=== PATIENT | male | born 1960 | race Caucasian/White ===

== ENCOUNTER 2020-03-01 20:22 | Emergency (ER) | payer OTHER ==
--- OUTSIDE RECORDS SUMMARY | 2020-03-01 20:25 | XMS REPORT | Clinical Summary ---
:1960 Author Organization [facility] Address [address] [place] [address] Care Team Providers Name Role Phone Sahil Ruiz MD Primary Care Provider Allergies No Known Allergies Medications Medication Sig Dispensed Refills Start Date End Date Status ferrous sulfate 325 (65 Take 1 tablet by 3 6 Active FE) MG tablet mouth 2 (two) times a day. hydroCHLOROthiazide daily. 2 09/05/2016 Active (HYDRODIURIL) 25 MG tablet losartan (COZAAR) 50 MG 50 mg daily. 2 09/05/2016 Active tablet pramipexole (MIRAPEX) TAKE 1 TABLET BY 2 08/31/2016 Active 0.5 MG tablet MOUTH AT 5 PM AND 1 AT 8 PM cholecalciferol, vitamin TAKE 1 CAPSULE(S) 1 017 Active D3, 50,000 unit capsule EVERY WEEK BY ORAL ROUTE DIRECTED FOR 30 DAYS. TRESIBA FLEXTOUCH U-200 INJECT 28 UNITS 3 02/03/2017 Active 200 unit/mL (3 mL) EVERY DAY, insulin pen TITRATE UP TO 50 UNITS PER DAY VICTOZA 2-MAXINE 0.6 mg/0.1 INJECT 1.2 MG 0 02/03/2017 Active mL (18 mg/3 mL) pen EVERY DAY BY injector SUBCUTANEOUS ROUTE DIRECTED FOR 30 DAYS. magnesium oxide (MAG-OX) Take 1 tablet by 3 02/23/20 17 Active 400 mg tablet mouth once daily. metFORMIN XR TAKE 2 TABLET(S) 2 01/31/2017 Active (GLUCOPHAGE-XR) 500 mg TWICE A DAY BY 24 hr tablet ORAL ROUTE DIRECTED FOR 30 DAYS. rosuvastatin (CRESTOR) 5 TAKE 1 TABLET(S) 2 12/08/19 17 Active MG tablet EVERY DAY BY ORAL ROUTE AT BEDTIME FOR 90 DAYS. multivit-min/folic/vit Take by mouth. 0 Active K/lycop (MEN'S MULTIVITAMIN ORAL) Active Problems Problem Noted Date Gastroparesis 06/14/2018 Gastroesophageal reflux disease with esophagitis 06/14 Status post laparoscopic fundoplication 06/14/2018 History of repair of hiatal hernia 06/14/2018 Obstructive sleep apnea 06/14/2018 Benign essential hypertension 06/14/2018 Family History Medical History Relation Name Comments Emphysema Father Breast cancer Mother Colon cancer Neg Hx Colon polyps Neg Hx Relation Name Status Comments Father Maternal Grandfather Maternal Grandmother Mother Alive Paternal Grandfather Paternal Grandmother Social History Tobacco Use Types Packs/Day Years Used Date Never Smoker Smokeless Tobacco: Never Used Alcohol Use Drinks/Week oz/Week Comments Yes rarely Sex Assigned at Date Recorded Not on file Job Start Date Occupation Industry Not on file Not on file Not on file Travel History Travel Start Travel End No recent travel history available. 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
--- OUTSIDE RECORDS SUMMARY | 2020-03-01 20:27 | XMS REPORT | Continuity of Care Document ---
:1960 Author Organization [employer] Interactive Care Team Providers Name Role Phone [employer] Interactive Unavailable Un available Problems Problem Status Onset Classification Date Comments Sourc e Date Reported ELBOW F/B - PIECE OF Active [facility] WIRE [address] [place] [address] CELLULITIS, FB UPPER Active [facility] ARM [address] [place] [address] Diabetes mellitus Resolved Problem 02/25/2017 [facility] [place] (disorder) [facility] Hypercholesterolemia Resolved Problem 02/25/2017 [facility] (disorder) [facility] Hypertensive disorder, Resolved Problem 02/25/2017 [facility] systemic arterial Me dical (disorder) Center Obstructive sleep apnea Resolved Problem 02/25/2017 [facility] syndrome (disorder) [facility] Hiatal hernia Resolved Problem 02/25/[place] ([place] [facility] CELLULITIS, UNSPECIFIED Active [facility] Medications Medication Details Route Status Patient Ordering Order Source Instructions Provider Date Amoxicillin 875 MG / 1 tab, PO, Active [facility] Clavulanate 125 MG Q12H, X 5 day, 2017 Medical Oral Tablet # 10 tab, 0 Center [Augmentin 875-mg] Refill(s) Acetaminophen 300 MG 1 tab, PO, Active 02/22[facility] / Codeine Phosphate Q6H, PRN Pain, 2017 Medical 30 MG Oral Tablet X 7 day, # 28 Center [Tylenol with tab, 0 Codeine #3] Refill(s) tramadol 50 mg = 1 tab, Active 02/22[facility] hydrochloride 50 MG PO, Q4H, X 7 2017 Medical Oral Tablet day, # 42 tab, Cente r 0 Refill(s) rosuvastatin Notes: Same as No Longer 02/22/ [facility] Crestor Active [address] [place] [address] Pramipexole Notes: (Same [place] Longer 02/21/ [place] as: Mirapex) Active [address] [place] [address] Insulin Glargine Notes: Same No Longer 02/21/ [facility] [place] as: Lantus) Do Active 2017 Medical not hold Center insulin without contacting prescriber WASTE: F/P - Black; E - Municipal Trash Bin Acetaminophen 325 MG Notes: (Same No Longer 02/03 0 [place] / Hydrocodone as: [place] Active 2017 Medical Bitartrate 5 MG Oral 325/5) Do not Center Tablet [[place] 5/325] exceed 4gm/day of acetaminophen. Losartan Notes: (Same No Longer [place] as: Cozaar) Active 2017 [facility] Protonix Notes: Tablet [place] Longer [place] should not be Active 2017 Medical chewed or Center crushed. (Same as: Protonix) ferrous sulfate Notes: Give No Longer [place] with food. Active 2017 Medical "Do Not Crush" Center Neurontin Notes: (Same [place] Longer [place] as: Neur[place]in) Active 2017 Medical Center celecoxib Notes: NSAID. No Longer [place] Please check Active 2017 Medical indication. Center Not for seizure. (Same As: CeleBREX) Acetaminophen Notes: Max [place] Longer [place] acetaminophen Active 2017 Medical 4000 mg/day (4 Center gm/day). (Same as: Tylenol Extra Strength) gabapentin Notes: (Same No Longer [place] as: Neurontin) Active 2017 Medical Center Oxycodone Notes: (Same [place] Longer [place] Hydrochloride 5 MG as: Active 2017 Medic al Oral Tablet Roxicodone) Center Hydromorphone 0.3 mg, Route: Inactive [place] IVP, Q4H, 2016 Medical Dosing Weight Center 127.273, kg, PRN Pain Score 7-10, Start date: 02/20/17 16:59:00 CDT, Duration: 30 day, Stop date: 03/22/17 16:58:00 CDT Ondansetron Notes: (Same No Longer [place] as: Zofran) Active 2017 Medical MEDICATION Center WASTE Product Size: 4 mg Product Wasted: ___ mg Ondansetron 4 mg, Route: Inactive [place] IVP, ONCE, 2016 Medical Dosing Weight Center 127.273, kg, PRN Nausea & Vomiting, Start date: 02/20/17 16:24:00 CDT Naloxone Notes: Same as Inactive [facility] [place] N[place]an 2017 [facility] Flumazenil Notes: (Same Inactive 02/20[facility] [place] as: Romazicon) 2017 [facility] Oxycodone Notes: (Same Inactive 02/20[facility] [place] as: 2017 Medical 'Roxicodone) Center Hydromorphone Notes: Same Inactive 02/20[facility] [place] as: Dilaudid 2017 [facility] esmolol Notes: (Same Inactive 02/20[facility] [place] as: Brevibloc) 2017 [facility] Labetalol 10 mg, 2 mL, Inactive [facility] Route: IVP, 2017 Medical Drug form: Center INJ, Q5Min, Dosing Weight 127.273, kg, PRN Elevated BP, Start date: 02/20/17 16:24:00 CDT, Duration: 5 doses or times, Stop date: 02/21/17 0:00:00 CDT Hydralazine Notes: (Same Inactive 02/20[facility] [place] as: 2017 Medical Apresoline) Center Push over 5 minutes Metoprolol Notes: (Same Inactive 02/20[facility] [place] as: Lopressor) 2017 Medical Push over 2 Center minutes glycopyrrolate Route: IV, Inactive 02/20[facility] [place] (ANES) Drug form: 2017 Medical INJ, ONCE, Center Stop date: 02/20/17 16:23:00 CDT neostigmine (ANES) Route: IV, Inactive 02/20[facility] Drug form: 2016 Medical INJ, ONCE, Center Stop date: 02/20/17 16:23:00 CDT ondansetron (ANES) Route: IV, Inactive 02/20[facility] Drug form: 2017 Medical INJ, ONCE, Center Stop date: 02/20/17 16:23:00 CDT fentaNYL (ANES) Route: IV, Inactive 02/20[facility] [place] Drug form: 2017 Medical INJ, ONCE, Center Stop date: 02/20/17 16:00:00 CDT ePHEDrine (ANES) Route: IV, Inactive 02/20[facility] Drug form: 2017 Medical INJ, ONCE, Center Stop date: 02/20/17 16:00:00 CDT succinylcholine Route: IV, Inactive 02/20[facility] [place] (ANES) Drug form: 2017 Medical INJ, ONCE, Center Stop date: 02/20/17 16:00:00 CDT lidocaine (ANES) Route: IV, Inactive [facility] Drug form: 2017 Medical INJ, ONCE, Center Stop date: 02/20/17 16:00:00 CDT midazolam (ANES) Route: IV, Inactive [facility] Drug form: 2017 Medical SOLN, ONCE, Center Stop date: 02/20/17 16:00:00 CDT rocuronium (ANES) Route: IV, Inactive [facility] Drug form: 2017 Medical INJ, ONCE, Center Stop date: 02/20/17 16:00:00 CDT propofol (ANES) Route: IV, Inactive [place] Drug form: 2017 Medical INJ, ONCE, Center Stop date: 02/20/17 16:00:00 CDT ceFAZolin (ANES) Route: IV, Inactive [facility] Drug form: 2017 Medical INJ, ONCE, Center Stop date: 02/20/17 15:45:00 CDT LR 1000 mL INJ Route: IV, Inactive [place] (ANES) Total Volume: 2017 Medical 1,000, Start Center date: 02/20/17 14:50:00 CDT, Stop date: 02/20/17 15:50:00 CDT 3 ML insulin 28 unit, Active [facility] degludec 200 UNT/ML SUB-Q, Daily, 2017 Medical Pen Injector TITRATE UP TO Cente r [Tresiba] 50 PER DAY, 0 Refill(s) pramipexole 0.5 mg 0.5 mg = 1 Active [facility] oral tablet tab, PO, BID, 2017 Medica l AT 5 AND 8 Center PM, 0 Refill(s) rosuvastatin 5 mg 5 mg = 1 tab, Active [facility] oral tablet PO, Bedtime, # 2017 Medic al 90 tab, 0 Center Refill(s) Klor-Con 8 16 mEq, PO, No Longer [place] TID, 0 Active 2016 Medical Refill(s) Center Insulin Glargine Notes: Same No Longer 02/20/ [facility] [place] as: Lantus) Do Active 2017 Medical not hold Center insulin without contacting prescriber WASTE: F/P - Black; E - Municipal Trash Bin Hydrochlorothiazide Notes: (Same No Longer 02/20 [facility] as: Active 2017 Medical Hydrodiuril) Center With food. Lisinopril Notes: (Same No Longer [facility] as as: Prinivil, Active 2017 Medical Zestril) Center Docusate Notes: (Same No Longer [facility] as: Colace) Active 2017 Medical (Do Not Crush) Center Tresiba FlexTouch See Inactive [place] Instructions, 2017 Medical SUB-Q Daily, 0 Center Refill(s) Metformin 1,000 mg, PO, Active [facility] BID, 0 2017 Medical Refill(s) Center 3 ML liraglutide 6 1.2 mg, SUB-Q, Active [facility] MG/ML Prefilled Daily, # 6 mL, 2017 M edical Syringe [Victoza] 3 Refill(s) Ce nter pramipexole 0.5 mg 0.5 mg = 1 Inactive [place] oral tablet tab, PO, TID, 2017 Medica l 0 Refill(s) Center ferrous sulfate 325 325 mg = 1 Active [place] MG Oral Tablet tab, PO, BID, 2017 Med ical 0 Refill(s) Center gabapentin 300 MG 300 mg = 1 Active [facility] Oral Capsule cap, PO, 2017 Medical Bedtime, 0 Center Refill(s) pantoprazole 40 MG 40 mg = 1 tab, Active [facility] Enteric Coated PO, Daily, # 2017 Medi ermias Tablet [Protonix] 30 tab, 0 Cent er Refill(s) Klor-Con 8 8 mEq, PO, Inactive [facility] BID, 0 2017 Medical Refill(s) Center Hydrochlorothiazide 25 mg, PO, Active [place] Daily, 0 2017 Medical Refill(s) Center losartan 50 mg oral 50 mg = 1 tab, Active 02/20 [facility] tablet PO, Daily, 0 2017 Medical Refill(s) Center pravastatin 10 mg 10 mg = 1 tab, Inactive [facility] oral tablet PO, Bedtime, # 2017 Medic al 30 tab, 0 Center Refill(s) Klor-Con 8 8 mEq, PO, Inactive [place] BID, 0 2016 Medical Refill(s) Center Albuterol 0.833 Notes: (Same No Longer [place] MG/ML / Ipratropium as: Duoneb) Active 2016 Medical [place] 0.167 MG/ML Cent er Inhalant Solution [DuoNeb] Unasyn Notes: Dosing No Longer [place] based on Active 2016 Medical Ampicillin Center component (Same as: Unasyn) Insulin, Aspart, Notes: Roll in No Longer [place] Human palms of hands Active 2016 Medical gently; Do Center not shake vigorously. (Same as: NovoLOG) "single patient use only" WASTE: F/P - Black; E - Municipal Trash Bin Stable for 28 days at room temperature. Expires in days from Date Dextrose 50% Syringe 12.5 gm, 25 No Longer 02/20 [place] mL, Route: Active 2016 Medical IVP, Drug Center Form: INJ, Dosing Weight 125, kg, PRN, PRN Blood Glucose Results, Start date: 02/20/17 0:08:00 CDT, Duration: 30 day, Stop date: 03/22/17 0:07:00 CDT Glucagon 1 mg, Route: No Longer [place] IM, Drug form: Active 2016 Medical PDR/INJ, PRN, Center Dosing Weight 125, kg, PRN Blood Glucose Results, Start date: 02/20/17 0:08:00 CDT, Duration: 30 day, Stop date: 03/22/17 0:07:00 CDT Ondansetron Notes: (Same [place] Long[place] as: Zofran) Active 2016 Medical MEDICATION Center WASTE Product Size: 4 mg Product Wasted: ___ mg Morphine Notes: (Same No Longer [place] as:MORPhine Active 2016 Medical Sulfate) Center Acetaminophen 325 MG Notes: Do not No Longer [place] / Hydrocodone exceed 4gm/day Active 2016 Med ical Bitartrate 5 [address] Oral [address] Tablet acetaminophen. (Same as: [place] 325/10) Acetaminophen Notes: Do not No Longer [place] exceed 4 Active 2017 Medical gm/day. (Same Center as: Tylenol) Dilaudid 1 mg, Route: Inactive [facility] IVP, ONCE, 2016 Medical Dosing Weight Center 125, kg, Priority: STAT, Start date: 02/19/17 20:59:00 CDT, Stop date: 02/19/17 20:59:00 CDT Zosyn 4.5 gm, Route: Inactive [facility] IVPB, ONCE, 2016 Medical Dosing Weight Center 125, kg, Priority: STAT, Start date: 02/19/17 20:59:00 CDT, Duration: 1 doses or times, Stop date: 02/19/17 20:59:00 CDT, ABX Indication: Bacteremia Vancomycin 2001 mg: Inactive [facility] infuse over 2017 [facility] 2.5 hours Center MEDICATION WASTE Product Size: 1000 mg Product Wasted: 0 mg Sodium Chloride 2,000 mL, Inactive [place] 0.154 MEQ/ML 1,000 ml/hr, 2016 Medica l Injectable Solution Infuse Over: 1 Center hr, Route: IV, ONCE, Priority: STAT, Dosing Weight 125 kg, Start date: 02/19/17 20:57:00 CDT, Duration: 1 doses or times, Stop date: 02/19/17 20:57:00 CDT Allergies, Adverse Reactions, Alerts No Known Medication Allergies Immunizations No Data Provided for This Section Results Order Name Results Value Reference Date Interpretation Comments Joy rce Range CHEM PANEL Magnesium 2.1 1.8 - 2.4 02/21 [facility] CHEM PANEL Phosphorus 2.6 2.5 - 4.5 02/21 [facility] ELECTROLYTES AGAP 12.1 10.0 - 02/21 [facility] 20.0 [facility] ELECTROLYTES Sodium l 135 135 - 145 02/21 [place] [facility] ELECTROLYTES Creatinine 0.81 0.50 - 02/21 [facility] 1.40 [facility] ELECTROLYTES Chloride Lvl 101 95 - 109 02/21 [place] [facility] ELECTROLYTES Potassium 4.1 3.5 - 5.1 02/21 [place] [facility] ELECTROLYTES CO2 26 24 - 32 02/21 [facility] ELECTROLYTES BUN 11 7 - 22 02/21 [facility] ELECTROLYTES Glucose Lvl 165 70 - 99 02/21 [facility] ELECTROLYTES eGFR 99 02/21 Result Comment: The Medical eGFR is Center calculated using the CKD-EPI formula. In most young, healthy individuals the eGFR will be >90 mL/min/1.73m2 . The eGFR declines with age. An eGFR of 60-89 may be normal in some populations, particularly the elderly, for whom the CKD-EPI formula has not been extensively validated. Use of the eGFR is not recommended in the following populations:< br/>
Mary viduals with unstable creatinine concentration s, including patients and those with serious co-morbid conditions.<b r/>
Patie nts with extremes in muscle mass or diet.

The data above are obtained from the National Kidney Disease Education Program (NKDEP) which additionally recommends that when the eGFR is used in patients with extremes of body mass index for purposes of drug dosing, the eGFR should be multiplied by the estimated BMI. ELECTROLYTES Calcium Lvl 8.9 8.5 - 10.5 02/21 [place] [facility] HEMATOLOGY MCV 83.0 80.0 - 02/21 [place] 94.0 [facility] HEMATOLOGY Hgb 11.3 14.0 - 02/21 18.0 [facility] HEMATOLOGY Hct 34.1 42.0 - 02/21 54.0 [facility] HEMATOLOGY WBC 9.8 3.7 - 10.4 02/21 [facility] HEMATOLOGY RBC 4.11 4.70 - 02/21 [place] 6.10 [facility] HEMATOLOGY MPV 7.9 7.4 - 10.4 02/21 [facility] HEMATOLOGY RDW 14.5 11.5 - 02/21 [place] 14.5 [facility] HEMATOLOGY Platelet 218 133 - 450 02/21 [facility] HEMATOLOGY MCH 27.4 27.0 - 02/21 [place] 31.0 [facility] HEMATOLOGY MCHC 33.0 32.0 - 02/21 [place] 36.0 [facility] HEMATOLOGY Monocytes # 0.4 0.0 - 0.8 02/21 [facility] HEMATOLOGY Lymphocytes 0.7 1.0 - 5.5 02/21 [place] # /2016 [facility] HEMATOLOGY Lymphocytes 7.5 20.0 - 02/21 [place] 40.0 [facility] HEMATOLOGY Monocytes 3.7 2.0 - 12.0 02/21 [facility] HEMATOLOGY Segs 88.7 45.0 - 02/21 [place] 75.0 [facility] HEMATOLOGY Basophils 0.1 0.0 - 1.0 02/21 [facility] HEMATOLOGY Segs-Bands # 8.7 1.5 - 8.1 02/21 [place] as /2016 [facility] BLOOD BANK ABO/Rh A NEG 02/20 [place] RESULTS [facility] BLOOD BANK Antibody Negative 02/20 [facility] RESULTS Scrn (02/20/17 3:31 AM) [facility] CHEM PANEL eGFR 97 02/20 Result Comment: [facility] eGFR is Center calculated using the CKD-EPI formula. In most young, healthy individuals the eGFR will be >90 mL/min/1.73m2 . The eGFR declines with age. An eGFR of 60-89 may be normal in some populations, particularly the elderly, for whom the CKD-EPI formula has not been extensively validated. Use of the eGFR is not recommended in the following populations:< br/>
Mary viduals with unstable creatinine concentration s, including patients and those with serious co-morbid conditions.<b r/>
Patie nts with extremes in muscle mass or diet.

The data above are obtained from the National Kidney Disease Education Program (NKDEP) which additionally recommends that when the eGFR is used in patients with extremes of body mass index for purposes of drug dosing, the eGFR should be multiplied by the estimated BMI. CHEM PANEL Creatinine 0.84 0.50 - 02/20 [place] Lvl 1.40 [facility] CHEM PANEL Glucose Lvl 149 70 - 99 02/20 [facility] CHEM PANEL Potassium 3.7 3.5 - 5.1 02/20 [facility] Lvl [facility] CHEM PANEL Chloride Lvl 106 95 - 109 02/20 a s /2016 [facility] CHEM PANEL BUN 12 7 - 22 02/20 [facility] CHEM PANEL AGAP 14.7 10.0 - 02/20 [place] 20.0 [facility] CHEM PANEL Calcium Lvl 8.0 8.5 - 10.5 02/20 as [facility] CHEM PANEL CO2 24 24 - 32 02/20 [facility] CHEM PANEL Sodium Lvl 141 135 - 145 02/20 [facility] HEMATOLOGY PT 12.7 12.0 - 02/20 [place] 14.7 [facility] HEMATOLOGY PTT 29.1 22.9 - 02/20 [place] 35.8 /2016 [facility] HEMATOLOGY INR 0.93 0.85 - 02/20 [place] 1.17 [facility] HEMATOLOGY Platelet 200 133 - 450 02/20 [facility] HEMATOLOGY RDW 14.5 11.5 - 02/20 [place] 14.5 [facility] HEMATOLOGY MCHC 33.8 32.0 - 02/20 [place] 36.0 [facility] HEMATOLOGY Hct 31.8 42.0 - 02/20 [place] 54.0 [facility] HEMATOLOGY MCV 83.7 80.0 - 02/20 [place] 94.0 [facility] HEMATOLOGY Hgb 10.7 14.0 - 02/20 [place] 18.0 [facility] HEMATOLOGY MPV 8.6 7.4 - 10.4 02/20 [facility] HEMATOLOGY MCH 28.3 27.0 - 02/20 [place] 31.0 [facility] HEMATOLOGY WBC 7.8 3.7 - 10.4 02/20 [facility] HEMATOLOGY RBC 3.80 4.70 - 02/20 [place] 6.10 [facility] HEMATOLOGY Basophils 0.4 0.0 - 1.0 02/20 [facility] HEMATOLOGY Eosinophils 0.2 0.0 - 0.5 02/20 [place] # /2016 [facility] HEMATOLOGY Monocytes 7.7 2.0 - 12.0 02/20 [facility] HEMATOLOGY Lymphocytes 21.1 20.0 - 02/20 [place] 40.0 [facility] HEMATOLOGY Segs-Bands # 5.3 1.5 - 8.1 02/20 [place] /2016 [facility] HEMATOLOGY Eosinophils 3.0 0.0 - 4.0 02/20 [place] /2016 [facility] HEMATOLOGY Segs 67.8 45.0 - 02/20 [place] 75.0 [facility] HEMATOLOGY Monocytes # 0.6 0.0 - 0.8 02/20 s [facility] HEMATOLOGY Lymphocytes 1.6 1.0 - 5.5 02/20 [place] # [facility] CHEM PANEL Lactic Acid 1.0 0.5 - 2.2 02/20 [facility] s l [facility] ELECTROLYTES AGAP 13.8 10.0 - 02/20 [place] 20.0 [facility] ELECTROLYTES eGFR 101 02/20 Result Comment: The Medical eGFR is Center calculated using the CKD-EPI formula. In most young, healthy individuals the eGFR will be >90 mL/min/1.73m2 . The eGFR declines with age. An eGFR of 60-89 may be normal in some populations, particularly the elderly, for whom the CKD-EPI formula has not been extensively validated. Use of the eGFR is not recommended in the following populations:< br/>
Mary viduals with unstable creatinine concentration s, including patients and those with serious co-morbid conditions.<b r/>
Patie nts with extremes in muscle mass or diet.

The data above are obtained from the National Kidney Disease Education Program (NKDEP) which additionally recommends that when the eGFR is used in patients with extremes of body mass index for purposes of drug dosing, the eGFR should be multiplied by the estimated BMI. ELECTROLYTES Calcium Lvl 8.2 8.5 - 10.5 02/20 [place] [facility] ELECTROLYTES CO2 25 24 - 32 02/20 [facility] ELECTROLYTES Glucose Lvl 106 70 - 99 02/20 [facility] ELECTROLYTES Sodium Lvl 140 135 - 145 02/20 [place] [facility] ELECTROLYTES Chloride Lvl 105 95 - 109 02/20 [place] [facility] ELECTROLYTES Potassium 3.8 3.5 - 5.1 02/20 [facility] s l [facility] ELECTROLYTES Creatinine 0.77 0.50 - 02/20 [facility] Lvl 1.40 [facility] ELECTROLYTES BUN 12 7 - 22 02/20 [facility] HEMATOLOGY Eosinophils 0.2 0.0 - 0.5 02/20 [place] # [facility] HEMATOLOGY Monocytes # 0.7 0.0 - 0.8 02/20 [place] [facility] HEMATOLOGY Lymphocytes 1.9 1.0 - 5.5 02/20 [place] # /2016 [facility] HEMATOLOGY Segs-Bands # 5.0 1.5 - 8.1 02/20 as [facility] HEMATOLOGY Basophils 0.5 0.0 - 1.0 02/20 [facility] HEMATOLOGY Monocytes 8.9 2.0 - 12.0 02/20 [facility] HEMATOLOGY Lymphocytes 24.5 20.0 - 02/20 [place] 40.0 [facility] HEMATOLOGY Segs 63.3 45.0 - 02/20 [place] 75.0 [facility] HEMATOLOGY Eosinophils 2.8 0.0 - 4.0 02/20 s /2016 [facility] HEMATOLOGY Sed Rate 45 0 - 15 02/20 [facility] HEMATOLOGY WBC 7.9 3.7 - 10.4 02/20 [facility] HEMATOLOGY Hgb 10.9 14.0 - 02/20 18.0 [facility] HEMATOLOGY RBC 3.90 4.70 - 02/20 [place] 6.10 [facility] HEMATOLOGY MCH 28.0 27.0 - 02/20 [place] 31.0 [facility] HEMATOLOGY MCV 82.3 80.0 - 02/20 94.0 [facility] HEMATOLOGY Hct 32.1 42.0 - 02/20 54.0 [facility] HEMATOLOGY MCHC 34.0 32.0 - 02/20 [place] 36.0 [facility] HEMATOLOGY Platelet 206 133 - 450 02/20 [facility] HEMATOLOGY RDW 14.5 11.5 - 02/20 14.5 [facility] HEMATOLOGY MPV 7.8 7.4 - 10.4 02/20 [facility] IMMUNOLOGY C-REACTIVE 19.3 <=2.9 mg/L 02/20 [facility] Pathology Reports No Data Provided for This Section Diagnostic Reports Report Value Date Source Upper Ext-Outside EXAM: CT RIGHT ELBOW WITHOUT CONTRAST 02/20/20 [facility] Medical Consult CT DATE: 02/19/2017 9:56 PM CDT Cent er INDICATION: Foreign body COMPARISON: 02/19/17 TECHNIQUE: Volumetric CT acq uisition of the right elbow without contrast. Axial, sagittal and coronal reconstructions. IV contrast: None. DLP: 232 mGy-cm FINDINGS: Bones: Within the ulnohumera l joint centrally is an 11 mm linear metallic density foreign body. No displaced fracture identified. Alignment is maintained. There is no periosteal reaction, focal erosion or cortical destruction to indicate the presence of acute osteomyelitis. Soft tissues: No soft tissue swelling or excessi ve joint fluid. IMPRESSION: 11 mm linear metallic densit y radiopaque foreign body within the ulnohumeral joint. Forearm 2 views DX EXAM: XR RIGHT HUMERUS 2 VIEWS 02/19/2017 [facility] Medical EXAM: XR RIGHT ELBOW [address] EXAM: XR RIGHT FOREARM 2 VIEWS DATE: February 19, 2017 at 2118 hours INDICATION: trauma COMPARISON: None TECHNIQUE: AP and lateral vi ews of the right humerus, AP, lateral and oblique views of the right elbow, AP and lateral views of the right forearm. DISCUSSION: Humerus: No acute fracture o r malalignment is identified. Subcutaneous fat stranding is seen at the posterior medial aspect of distal right humerus. Elbow: No acute fracture or malalignment is identified. No excessive joint fluid. A crescentic metallic fragment is seen at the posterior medial aspect of the right elbow joint measuring 1.17 cm in length. Forearm: No acute fracture o r malalignment is identified. Convex soft tissue swelling is seen along the dorsum of the proximal and middle third of the right forearm. IMPRESSION: 1. A 1.17 cm linear metallic foreign body is seen at the posterior medial aspect of right elbow joint. 2. Extensive soft tissue aaron ma is present at the posterior medial aspect of distal right forearm as well as at the dorsum of the proximal and middle third of right forearm. This may represent inflammation, infection or cellulitis. 3. There is no acute osseous abnormality of right forearm, right elbow or right humerus Elbow 3 views DX EXAM: XR RIGHT HUMERUS 2 VIEWS 02/19/2017 [facility] EXAM: XR RIGHT ELBOW [address] EXAM: XR RIGHT FOREARM 2 VIEWS DATE: February 19, 2017 at 2118 hours INDICATION: trauma COMPARISON: None TECHNIQUE: AP and lateral vi ews of the right humerus, AP, lateral and oblique views of the right elbow, AP and lateral views of the right forearm. DISCUSSION: Humerus: No acute fracture o r malalignment is identified. Subcutaneous fat stranding is seen at the posterior medial aspect of distal right humerus. Elbow: No acute fracture or malalignment is identified. No excessive joint fluid. A crescentic metallic fragment is seen at the posterior medial aspect of the right elbow joint measuring 1.17 cm in length. Forearm: No acute fracture o r malalignment is identified. Convex soft tissue swelling is seen along the dorsum of the proximal and middle third of the right forearm. IMPRESSION: 1. A 1.17 cm linear metallic foreign body is seen at the posterior medial aspect of right elbow joint. 2. Extensive soft tissue aaron ma is present at the posterior medial aspect of distal right forearm as well as at the dorsum of the proximal and middle third of right forearm. This may represent inflammation, infection or cellulitis. 3. There is no acute osseous abnormality of right forearm, right elbow or right humerus Humerus 2 views DX EXAM: XR RIGHT HUMERUS 2 VIEWS 02/19/2017 [facility] EXAM: XR RIGHT ELBOW [address] EXAM: XR RIGHT FOREARM 2 VIEWS DATE: February 19, 2017 at 2118 hours INDICATION: trauma COMPARISON: None TECHNIQUE: AP and lateral vi ews of the right humerus, AP, lateral and oblique views of the right elbow, AP and lateral views of the right forearm. DISCUSSION: Humerus: No acute fracture o r malalignment is identified. Subcutaneous fat stranding is seen at the posterior medial aspect of distal right humerus. Elbow: No acute fracture or malalignment is identified. No excessive joint fluid. A crescentic metallic fragment is seen at the posterior medial aspect of the right elbow joint measuring 1.17 cm in length. Forearm: No acute fracture o r malalignment is identified. Convex soft tissue swelling is seen along the dorsum of the proximal and middle third of the right forearm. IMPRESSION: 1. A 1.17 cm linear metallic foreign body is seen at the posterior medial aspect of right elbow joint. 2. Extensive soft tissue aaron ma is present at the posterior medial aspect of distal right forearm as well as at the dorsum of the proximal and middle third of right forearm. This may represent inflammation, infection or cellulitis. 3. There is no acute osseous abnormality of right forearm, right elbow or right humerus Consultation Notes No Data Provided for This Section Discharge Summaries No Data Provided for This Section History and Physicals No Data Provided for This Section Vital Signs Vital Sign Value Date Comments Source Temperature Oral (F) 98 F 02/22/2017 [facility] Systolic (mm Hg) 158 02/22/2017 [facility] Diastolic (mm Hg) 81 02/22/2017 [facility] Respitory Rate 18 02/22/2017 [facility] Heart Rate 67 02/22/2017 [facility] Systolic (mm Hg) 143 02/22/2017 [facility] Diastolic (mm Hg) 85 02/22/2017 [facility] Temperature Oral (F) 97.9 F 02/22/2017 [facility] Heart Rate 65 02/22/2017 [facility] Respitory Rate 18 02/22/2017 [facility] Systolic (mm Hg) 128 02/22/2017 [facility] Diastolic (mm Hg) 78 02/22/2017 [facility] Respitory Rate 18 02/22/2017 [facility] Heart Rate 73 02/22/2017 [facility] Temperature Oral (F) 97.8 F 02/22/2017 [facility] Height 182.88 cm 02/20/2017 [facility] Weight 127.273 02/20/2017 [facility] BMI Calculated 38.05 02/20/2017 [facility] Height 182.88 cm 02/20/2017 [facility] BMI Calculated 37.37 02/20/2017 [facility] Weight 125 02/20/2017 [facility] Encounters Location Location Encounter Encounter Reason Attending ADM NE Stat us Source Details Type Number For Provider Date Date Visit [facility] Inpatient [id number] Hilda Dang 02/20 02/22 [facility] /2016 [facility] Procedures Procedure Code Date Perfomer Comments Source Hand [id number] surgery [facility] incision<sup>1</ procedure on Medica l sup> left hand 2005 Center Operation on [id number] year 2013 [facility] lumbar Medical spine<sup>2</sup Center > Repair of knee [id number] year 2014 [facility] joint<sup>3</sup Medical > Center Assessment and Plan Assessment and Plan Date Source Extracted from:Title: Progress Note 02/22/2017 [facility] Author: Hilda Dang MD Date: 02/21/17 Assessment/Plan 56-year-old male with past medical histo ry ofhypertensionand type 2 diabetespresented withright elbowpainful swellingand foreign body3 days after hit by a metal piece during weeding. 1.17 cm linear meta llic foreign body is seen at the posteri or medial aspect of right elbow joint. He was evaluated by ORS and he underwentincision and drainage, removal of the foreign bodyyesterday. Postoperativeperiod siu s been uneventful. Awaiting cultures hector rosas report, on Unasyn empirically. If negative can DC antibiotics andbe dischargedonce cleared by ORS. 2.Foreign body of upper arm, Foreign body of upper arm -POD 1 s/p I&D, removal foreign body R elbow -NWB RUE -Cultures so far negative, continue Unas yn. Can be discontinued if cultures negative -Patient is afebrile, hemodynamically stable 3.DM type 2 with diabetic peripheral neuropathy -sugars better controlled with Lantus 14 units daily, SSI -Can resume home medications upon discharge 4.Acute pain -Pain better controlled, continue current regimen 5.HOWARD (obstructive sleep apnea) -CPAP and sleeping 6.Benign essential HTN -BP highthis a.m., resume his home me dications of losartan 50 mg p.o. daily, [id number] mg p.o. daily -It has improved at this time 7. Anemia -Hemodynamically stable, will monitor Prophylaxis Ambulatory Disposition Home, if cultures are negative ORS clearance Extracted from:Title: History and Physical Author: Gerald Anderson MD Date: 02/20/17 Assessment/Plan 56-year-old male with past medical histo ry ofhypertensionand type 2 diabetespresented withright elbowpainful swellingand foreign body3 days after hit by a metal piece during weeding. 1.17 cm linear meta llic foreign body is seen at the posterior medial aspect of right elbow joint. 1.Cellulitis 2/2 metalFB lodging in right elbow. s/p Tdap in ED start unasyn Ordered: Neurontin, 300 mg, 1 cap, Route: PO, Rodriguez g form: CAP, Bedtime, Dosing Weight 125, kg, Start date: 02/20/17 21:00:00 CDT, Duration: 30 day, Stop date: 03/21/17 21:00:00 CDT lisinopril, 15 mg, 3 tab, Route: PO, D rug form: TAB, Daily, Dosing Weight 125, kg, Start date: 02/20/17 9:00:00 CDT, Duration: 30 day, Stop date: 03/21/17 9:00:00 CDT Admit/Condition Diet NPO 2.Foreign body of upper arm pendingORS surgrery tomorrow Compartment check q2h Ordered: Neurontin, 300 mg, 1 cap, Route: PO, Rodriguez g form: CAP, Bedtime, Dosing Weight 125, kg, Start date: 02/20/17 21:00:00 CDT, Duration: 30 day, Stop date: 03/21/17 21:00:00 CDT lisinopril, 15 mg, 3 tab, Route: PO, D rug form: TAB, Daily, Dosing Weight 125, kg, Start date: 02/20/17 9:00:00 CDT, Duration: 30 day, Stop date: 03/21/17 9:00:00 CDT Admit/Condition Diet NPO 3.DM type 2 with diabetic peripheral neuropathy start lantus 14 units, that is half of his home dose of Tresiba given NPO tonight SSI restart gabapentin Ordered: Neurontin, 300 mg, 1 cap, Route: PO, Rodriguez g form: CAP, Bedtime, Dosing Weight 125, kg, Start date: 02/20/17 21:00:00 CDT, Duration: 30 day, Stop date: 03/21/17 21:00:00 CDT lisinopril, 15 mg, 3 tab, Route: PO, D rug form: TAB, Daily, Dosing Weight 125, kg, Start date: 02/20/17 9:00:00 CDT, Duration: 30 day, Stop date: 03/21/17 9:00:00 CDT Diet NPO 4.Acute pain mild to moderate pain start MMA bowel regimen Ordered: Neurontin, 300 mg, 1 cap, Route: PO, Rodriguez g form: CAP, Bedtime, Dosing Weight 125, kg, Start date: 02/20/17 21:00:00 CDT, Duration: 30 day, Stop date: 03/21/17 21:00:00 CDT lisinopril, 15 mg, 3 tab, Route: PO, D rug form: TAB, Daily, Dosing Weight 125, kg, Start date: 02/20/17 9:00:00 CDT, Duration: 30 day, Stop date: 03/21/17 9:00:00 CDT Diet NPO 5.HOWARD (obstructive sleep apnea) has CPAPbut not use all the time when sleeping O2 NC for now as needed Ordered: Neurontin, 300 mg, 1 cap, Route: PO, Rodriguez g form: CAP, Bedtime, Dosing Weight 125, kg, Start date: 02/20/17 21:00:00 CDT, Duration: 30 day, Stop date: 03/21/17 21:00:00 CDT lisinopril, 15 mg, 3 tab, Route: PO, D rug form: TAB, Daily, Dosing Weight 125, kg, Start date: 02/20/17 9:00:00 CDT, Duration: 30 day, Stop date: 03/21/17 9:00:00 CDT Diet NPO 6.Benign essential HTN restart lisinopril and HCTZ Ordered: Neurontin, 300 mg, 1 cap, Route: PO, Rodriguez g form: CAP, Bedtime, Dosing Weight 125, kg, Start date: 02/20/17 21:00:00 CDT, Duration: 30 day, Stop date: 03/21/17 21:00:00 CDT lisinopril, 15 mg, 3 tab, Route: PO, D rug form: TAB, Daily, Dosing Weight 125, kg, Start date: 02/20/17 9:00:00 CDT, Duration: 30 day, Stop date: 03/21/17 9:00:00 CDT Diet NPO 7. Pre OP cardiac evaluation Patient has IDDM, no CHF, CAD, or CKD CR >2. his revised cardiac risk index is 0.9%. low risk for low risk surgery. Patient has HOWARD, has increased risk for intubation complicat ion. recommend pre OP duoneb. Intraop VS and PO2 monitor for ORS and anaesthesia Prophylaxis SCD, ambulation Disposition pending ORS surgery, d/c home after surgery Extracted from:Title: ORS Consult Note Author: Ramo Preciado MD Date: 02/19/17 ORS Trauma Consult History and Physical Date of Service: 02/19/17 Reason for Consult: R elbow intraarticular body Source of Consult: ED Consulting Physician: [facility] Attending: Mika CC: I got hit while weed eating HPI: The pt is a 56 y/o RHD M s/p weedea ter accident sustaining R elbow intraarticular foreign body at approximately 2PM on Saturday 02/17 . Pt thought he was stung by a wasp at first but noticed he was bl eeding. Eventually he went and found a p iece of wire that his weedeater had hit. He though that it had just bounced off and not penetrated his elbow. He then began to experience continued pain and increased erythema and swelling to the elbow. PMH: HTN, DM, Sleep apnea, hiatal hernia PSH: L2-L5 back surgery, R knee scope, L hand ORIF Social History --Tobacco: Denies --EtOH: Occasional --Illicit drugs: Denies Family History: non contributory Medications: see mar Allergies: see mar Review of Systems: Gen: Denies fever/chills/night sweats. HEENT: Denies vision change, sore throat, ulcers in mouth, e pistaxis CV: Denies CP, Palpitations Resp: Denies SOB, wheezing, cough GI: Denies Abd pain, N/V/D/Constipation. Denies incontinence . : Denies urinary retention, urgency, burning, discharge. Back/Spine: Denies pain. Neuro: Denies numbness, tingling, headaches, weakness in ext remities. Integumentary: Denies open wounds, rashes, shaw. Endocrine: Denies recent weight changes, heat/cold insensiti vity. Psych: Denies depression, anxiety, labile mood, suicidal/eladio icidal ideation. Musculoskeletal: Denies all but HPI. All other systems negative except HPI. 02/19 2214 Glucose Lvl 106 H BUN 12 Creatinine Lvl 0.77 Sodium Lvl 140 Potassium Lvl 3.8 Chloride Lvl 105 CO2 25 AGAP 13.8 Calcium Lvl 8.2 L eGFR 101 Lactic Acid Lvl 1.0 WBC 7.9 RBC 3.90 L Hgb 10.9 L Hct 32.1 L MCV 82.3 MCH 28.0 MCHC 34.0 RDW 14.5 Platelet 206 MPV 7.8 Segs 63.3 Monocytes 8.9 Lymphocytes 24.5 Eosinophils 2.8 Basophils 0.5 Segs-Bands # 5.0 Lymphocytes # 1.9 Monocytes # 0.7 Eosinophils # 0.2 CRP 19.3 H VITALS Vitals Tmp(F) Pulse BP RR SpO2 FIO2 02/19 20:33 97.8 86 166/100 18 97 --- 24 Hr Tmax: 97.8F (36.56c) at 02/19 20:3 3 Vital Signs are the last 5 in the past 48 hours. Exam: Gen: A/Ox3, NAD HEENT: NCAT, PERRLA Resp: Breathing unlabored CV: Distal pulses palpated, RRR Abd: NT, ND RUE: Inspection: small lateral wound at the e lbow with scab, erythema about the elbow slight warmth. Compartments soft and compressible. Sensation: sensation intact to light touch m/r/u n Motor: intact AIN/PIN/Ulnar in hand; int actWrist flex/ext; Elbow flex/ext but ROM limited in extension secondary to pain, 120-65 degrees; Shoulder ABd,Flex Vascular: 2+ radial pulse palpated, BCR all fingers <2 sec. LUE: Inspection: No tenderness, no obvious ab normalities, no open wounds. Compartments soft and compressible. Sensation: sensation intact to light touch m/r/u n Motor: intact AIN/PIN/Ulnar in hand; 5/5 Wrist flex/ext; Elbow flex/ext; Shoulder ABd,Flex Vascular: 2+ radial pulse palpated, BCR all fingers <2 sec. Imaging: -R elbow IMPRESSION: 1. A 1.17 cm linear metallic foreign bod y is seen at the posterior medial aspect of right elbow joint. 2. Extensive soft tissue edema is presen t at the posterior medial aspect of distal right forearm as well as at the dorsum of the proximal and middle third of right forearm. This may represent inflammation, infection or cellulitis. A/P:56 M s/p weedeater accident with R elbow intraarticular foreign body - Weight bearing status: NWB RUE in sling w/ no ROM - Hospitalist is primary for medical management - Antibiotics: IV abx - Pain controlled - DVT PPx: TEDS/SCD, per primary - PT: will consult post op - Pending ORS surgeries: To OR with ORS on 02/20/17 for R elbow arthrotomy removal of foreign body with irrigation and debridement - Dispo: NPO after midnight for above procedure --call [facility] with any emergencies or any questions - Ramo Preciado MD PGY2 [id number] I, Sahil Brennan, have examined the patient and agree with the above assessment and plan on 02/20/2017. Plan: to the OR for I&D/FB removal R elbow, NPO, consent. Plan of Care No Data Provided for This Section Social History Social History Date Source Social History TypeResponse 02/20/2017 [facility] Substance Abuse Use: None. Alcohol Never Smoking Status Never smoker; Previous treatment: None; Ready to change: No; Concerns about tobacco use in household: No; Exposure to Tobacco Smoke None; Cigarette Smoking Last 365 Days No; Reg Smoking Cessation Counseling No Family History No Data Provided for This Section Advance Directives No Data Provided for This Section Functional Status No Data Provided for This Section
[2020-03-01] MEDS ORDERED: NA CHLORIDE 0.9% 500 ML ONE (22:06)
[2020-03-01 22:51] LABS: Absolute Lymphocytes (CBC) 0.9 K/uL (0.7-4.9); Basophils % 0.5 % (0-1.3); Hematocrit 33.3 % (39.6-49.0); MPV 8.5 fL (7.6-11.3); RBC Red Blood Cell Count 3.79 M/uL (4.33-5.43)
[2020-03-01] MEDS ORDERED: IBUPROFEN 400 MG TAB ONE ×2 (23:03→23:09)
[2020-03-01 23:04] LABS: ALT/SGPT 42 U/L (12-78); AST/SGOT 31 U/L (15-37); Albumin 3.5 g/dL (3.4-5.0); Alkaline Phosphatase 86 U/L (45-117); BUN Blood Urea Nitrogen 17 mg/dL (7-18); Bicarbonate 23 mmol/L (21-32); Bilirubin Direct < 0.1 mg/dL (0-0.2); Bilirubin Total 0.3 mg/dL (0.2-1.0); Glucose Level 115 mg/dL (74-106); Potassium 3.5 mmol/L (3.5-5.1); Protein, Total 7.3 g/dL (6.4-8.2); Sodium Level 139 mmol/L (136-145)
[2020-03-01 23:36] LABS: Urine Bacteria <20 /HPF (NONE SEEN); Urine Culture Reflex Order NOT NEEDED; Urine RBC <5 /HPF (NONE SEEN)
--- NOTE | 2020-03-01 23:59 | EDPHYS ---
Physician Documentation [facility] Name: Charlie Murray Age: 59 yrs Sex: Male : 1960 Arrival Date: 03/01/2020 Time: 20:23 Bed 3 Private MD: ED Physician Glory Alvarado HPI: 03/01 21:30 This 59 yrs old Male presents to ER via Ambulatory with complaints of Fever, cp Chills. 21:30 The patient reports fever, that was measured at 104 degrees Fahrenheit. Onset: The cp symptoms/episode began/occurred this morning. Associated signs and symptoms: Pertinent positives: chills, Pertinent negatives: abdominal pain, altered mental status, chest pain, cough, diarrhea, headache, skin rash, sore throat, vomiting. Severity of symptoms: in the emergency department the symptoms have improved took oral tylenol this evening. Historical: - Allergies: 20:38 No Known Allergies; ca1 - Home Meds: 20:38 Lisinopril Oral [Active]; Hydrochlorothiazide Oral [Active]; ca1 - PMHx: 20:38 Anemia; Diabetes - NIDDM; Hypertension; neuropathy; restless leg syndrome; ca1 - PSHx: 20:38 Back; Left hand; ca1 - Immunization history:: Adult Immunizations up to date. - Social history:: Smoking status: Patient denies any tobacco usage or history of. ROS: 21:30 Constitutional: Positive for body aches, chills, history of fever, Negative for poor PO cp intake. 21:30 Respiratory: Negative for cough, shortness of breath. cp 21:30 Abdomen/GI: Negative for abdominal pain, nausea, vomiting, and diarrhea. 21:30 ENT: Negative for ear pain, sore throat, difficulty swallowing, difficulty handling cp secretions. 21:30 Cardiovascular: Negative for chest pain, edema, palpitations. 21:30 Skin: Negative for rash. 21:30 Neuro: Negative for altered mental status, headache, weakness. 21:30 All other systems are negative. Exam: 21:35 Constitutional: The patient appears in no acute distress, alert, awake, cp non-diaphoretic, non-toxic, well developed, well nourished. 21:35 Head/Face: Normocephalic, atraumatic. cp 21:35 Eyes: Periorbital structures: appear normal, Conjunctiva: normal, no exudate, no cp injection, Sclera: no appreciated abnormality, Lids and lashes: appear normal, bilaterally. 21:35 ENT: External ear(s): are unremarkable, Nose: is normal, Mouth: Lips: moist, Oral mucosa: pink and intact, moist, Posterior pharynx: is normal, airway is patent, no erythema, no exudate. 21:35 Neck: ROM/movement: Meningeal signs: are not present, nuchal rigidity, is not appreciated. 21:35 Chest/axilla: Inspection: normal, Palpation: is normal, no crepitus, no tenderness. 21:35 Cardiovascular: Rate: normal, Rhythm: regular. 21:35 Respiratory: the patient does not display signs of respiratory distress, Respirations: normal, no use of accessory muscles, labored breathing, is not present, Breath sounds: are clear throughout, no decreased breath sounds, no stridor, no wheezing. 21:35 Abdomen/GI: Inspection: abdomen appears normal, Bowel sounds: active, all quadrants, Palpation: abdomen is soft and non-tender, in all quadrants. 21:35 Back: pain, is absent, ROM is normal. 21:35 Skin: cellulitis, is not appreciated, no rash present. 21:35 Neuro: Orientation: to person, place \T\ time. Mentation: is normal, Motor: moves all fours, strength is normal. Vital Signs: 20:33 BP 143 / 71; Pulse 84; Resp 15 S; Temp 98.7(TE); Pulse Ox 97% on R/A; Weight 108.86 kg ca1 (R); Height 5 ft. 11 in. (180.34 cm) (R); 22:12 BP 139 / 69; Pulse 70; Resp 15 S; Pulse Ox 100% on R/A; jd3 23:38 BP 132 / 66; Pulse 76; Resp 16 S; Temp 99.8(O); Pulse Ox 96% on R/A; jd3 20:33 Body Mass Index 33.47 (108.86 kg, 180.34 cm) ca1 MDM: 20:59 Patient medically screened. cp 21:30 Differential diagnosis: viral Infection, bacterial infection, pneumonia UTI, cp gastroenteritis, meningitis. 23:55 Data reviewed: vital signs, nurses notes, lab test result(s). cp 23:55 Counseling: I had a detailed discussion with the patient and/or guardian regarding: the cp historical points, exam findings, and any diagnostic results supporting the discharge/admit diagnosis, lab results, to return to the emergency department if symptoms worsen or persist or if there are any questions or concerns that arise at home. 03/01 21:27 Order name: COVID-19 03/01 21:27 Order name: Flu 03/01 21:27 Order name: Strep 03/01 21:27 Order name: Basic Metabolic Panel 03/01 21:27 Order name: CBC with Diff; Complete Time: 23:15 03/01 23:15 Interpretation: Normal except: RBC 3.79; HGB 11.1; HCT 33.3; MCV 87.8. 03/01 21:27 Order name: LFT's; Complete Time: 23:15 03/01 23:16 Interpretation: Normal except: GLOB 3.8; A/G 0.9. 03/01 21:27 Order name: Blood Culture Adult (2) 03/01 21:27 Order name: Lactate; Complete Time: 23:15 03/01 23:16 Interpretation: Within normal limits: LAC 1.2. 03/01 21:27 Order name: Procalcitonin; Complete Time: 23:51 03/01 23:51 Interpretation: Reviewed. 03/01 21:27 Order name: Urine Microscopic Only; Complete Time: 23:51 03/01 23:52 Interpretation: Reviewed. 03/01 21:28 Order name: CORONAVIRUS EDIN 03/01 21:28 Order name: Influenza Screen (A ; Complete Time: 23:51 EDIN 03/01 23:52 Interpretation: Reviewed. 03/01 21:28 Order name: Group A Streptococcus Rapid Sc; Complete Time: 23:51 EDIN 03/01 23:52 Interpretation: Reviewed. 03/01 21:28 Order name: Basic Metabolic Panel; Complete Time: 23:15 EDIN 03/01 23:16 Interpretation: Normal except: CL 108; GLUC 115; GFR 71; CA 8.2. 03/01 21:27 Order name: Document PUI#; Complete Time: 23:19 03/01 21:27 Order name: Droplet/Contact Precautions; Complete Time: 21:28 03/01 21:27 Order name: Labs collected and sent; Complete Time: 22:10 03/01 21:27 Order name: Notify Health Dept [phone]/ ; Complete Time: 21:29 03/01 21:27 Order name: O2 Per Protocol; Complete Time: 21:28 03/01 21:27 Order name: Cardiac monitoring; Complete Time: 21:56 03/01 21:27 Order name: IV Saline Lock; Complete Time: 21:56 03/01 21:27 Order name: O2 Sat Monitoring; Complete Time: 21:28 cp 03/01 21:27 Order name: Urine Dipstick-Ancillary (obtain specimen); Complete Time: 23:39 03/01 23:47 Order name: Throat Culture EDMS Administered Medications: 22:11 Drug: NS 0.9% 500 ml Route: IV; Rate: bolus; Site: left antecubital; jd3 23:10 Follow up: Response: No adverse reaction; IV Status: Completed infusion; IV Intake: jd3 500ml 22:58 Drug: Ibuprofen 800 mg Route: PO; ea 23:50 Follow up: Response: No adverse reaction jd3 Disposition: 03/02 00:30 Chart complete. cp 03:11 Co-signature as Attending Physician, Glory Alvarado MD. ma2 Disposition: 03/01/20 23:59 Discharged to Home. Impression: Fever, unspecified. - Condition is Stable. - Discharge Instructions: Fever, Adult. - Prescriptions for Ibuprofen 800 mg Oral Tablet - take 1 tablet by ORAL route every 8 hours As needed take with food; 30 tablet. - Medication Reconciliation Form, Thank You Letter, Antibiotic Education, Prescription Opioid Use, Work release form form. - Follow up: Private Physician; When: 2 - 3 days; Reason: Worsening of condition, Recheck today's complaints. - Problem is new. - Symptoms have improved. Signatures: Dispatcher [employer] EDMS Marek Jiménez PA PA cp Antunez, Elena RN Choco Bernard ea, RN RN jd3 Alzahri, Mohammad, MD MD ma2 Sydni Leon RN RN ca1 Corrections: (The following items were deleted from the chart) 03/01 23:16 23:16 Normal except: CL 108; GLUC 115; GFR 71. cp cp 03/02 00:26 03/01 23:59 03/01/2020 23:59 Discharged to Home. Impression: Fever, unspecified. jd3 Condition is Stable. Forms are Medication Reconciliation Form, Thank You Letter, Antibiotic Education, Prescription Opioid Use. Follow up: Private Physician; When: 2 - 3 days; Reason: Worsening of condition, Recheck today's complaints. Problem is new. Symptoms have improved. cp
--- NOTE | 2020-03-01 23:59 | ER ---
Nurse's Notes [facility] Name: Charlie Murray Age: 59 yrs Sex: Male : 1960 Arrival Date: 03/01/2020 Time: 20:23 Bed 3 Private MD: Diagnosis: Fever, unspecified Presentation: 03/01 20:33 Chief complaint: Patient states: Today, I started having fever and chills and just not ca1 feeling well. 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 Denies SOB. Denies urinary symptoms. Denies abdominal pain. Coronavirus screen: Patient denies a cough. Patient denies shortness of breath or difficulty breathing. Patient reports a measured and/or subjective temperature greater than 100.4F. Patient denies travel on a cruise ship or to a country the [facility] currently lists as an affected area. Patient denies contact with known and/or suspected case of COVID-19. Surgical mask in place, instructed to keep at all times and distance self from others in the lobby. Verbalized understanding. Ebola Screen: Patient negative for fever greater than or equal to 101.5 degrees Fahrenheit, and additional compatible Ebola Virus Disease symptoms Patient denies exposure to infectious person. Patient denies travel to an Ebola-affected area in the 21 days before illness onset. No symptoms or risks identified at this time. Initial Sepsis Screen: Does the patient meet any 2 criteria? No. Patient's initial sepsis screen is negative. Does the patient have a suspected source of infection? No. Patient's initial sepsis screen is negative. Risk Assessment: Do you want to hurt yourself or someone else? Patient reports no desire to harm self or others. Onset of symptoms was March 01, 2020. 20:33 Method Of Arrival: Ambulatory ca1 20:33 Acuity: CORINE 3 ca1 Historical: - Allergies: 20:38 No Known Allergies; ca1 - Home Meds: 20:38 Lisinopril Oral [Active]; Hydrochlorothiazide Oral [Active]; ca1 - PMHx: 20:38 Anemia; Diabetes - NIDDM; Hypertension; neuropathy; restless leg syndrome; ca1 - PSHx: 20:38 Back; Left hand; ca1 - Immunization history:: Adult Immunizations up to date. - Social history:: Smoking status: Patient denies any tobacco usage or history of. Screenin:22 Abuse screen: Denies threats or abuse. Nutritional screening: No deficits noted. jd3 Tuberculosis screening: No symptoms or risk factors identified. Fall Risk Ambulatory Aid- None/Bed Rest/Nurse Assist (0 pts). Gait- Normal/Bed Rest/Wheelchair (0 pts) Mental Status- Oriented to own ability (0 pts). Total Mcfarlane Fall Scale indicates No Risk (0-24 pts). Assessment: 21:21 General: Appears in no apparent distress. comfortable, Behavior is calm, cooperative, jd3 appropriate for age, Reports fever for prior to arrival. Pain: Denies pain. Neuro: Level of Consciousness is awake, alert, obeys commands, Oriented to person, place, time, situation. Cardiovascular: Denies chest pain, Heart tones S1 S2 present Capillary refill < 3 seconds Patient's skin is warm and dry. Respiratory: Airway is patent Respiratory effort is even, unlabored, Respiratory pattern is regular, symmetrical, Breath sounds are clear bilaterally. Denies cough, shortness of breath. GI: No signs and/or symptoms were reported involving the gastrointestinal system. : No signs and/or symptoms were reported regarding the genitourinary system. EENT: No signs and/or symptoms were reported regarding the EENT system. Derm: Skin is intact, Skin is dry, Skin is normal, Skin temperature is warm. Musculoskeletal: Circulation, motion, and sensation intact. Range of motion: intact in all extremities. 22:11 Reassessment: Patient appears in no apparent distress at this time. Patient and/or jd3 family updated on plan of care and expected duration. Pain level reassessed. Patient is alert, oriented x 3, equal unlabored respirations, skin warm/dry/pink. Patient denies pain at this time. 03/02 00:22 Reassessment: Patient appears in no apparent distress at this time. Patient and/or jd3 family updated on plan of care and expected duration. Pain level reassessed. Patient is alert, oriented x 3, equal unlabored respirations, skin warm/dry/pink. Patient states feeling better. Vital Signs: 03/01 20:33 BP 143 / 71; Pulse 84; Resp 15 S; Temp 98.7(TE); Pulse Ox 97% on R/A; Weight 108.86 kg ca1 (R); Height 5 ft. 11 in. (180.34 cm) (R); 22:12 BP 139 / 69; Pulse 70; Resp 15 S; Pulse Ox 100% on R/A; jd3 23:38 BP 132 / 66; Pulse 76; Resp 16 S; Temp 99.8(O); Pulse Ox 96% on R/A; jd3 20:33 Body Mass Index 33.47 (108.86 kg, 180.34 cm) ca1 ED Course: 20:23 Patient arrived in ED. ds1 20:36 Triage completed. ca1 20:38 Arm band placed on right wrist. ca1 20:56 Marek Jiménez PA is PHCP. cp 20:56 Glory Alvarado MD is Attending Physician. cp 21:21 Choco Grigsby RN is Primary Nurse. jd3 21:23 Patient has correct armband on for positive identification. Bed in low position. Call jd3 light in reach. Side rails up X 1. Adult w/ patient. Pulse ox on. NIBP on. 21:50 Inserted saline lock: 22 gauge in left forearm, using aseptic technique. Blood jd3 collected. placed DanielXendo. 03/02 00:24 No provider procedures requiring assistance completed. jd3 00:25 IV discontinued, intact, bleeding controlled, No redness/swelling at site. Pressure jd3 dressing applied. Administered Medications: 03/01 22:11 Drug: NS 0.9% 500 ml Route: IV; Rate: bolus; Site: left antecubital; jd3 23:10 Follow up: Response: No adverse reaction; IV Status: Completed infusion; IV Intake: jd3 500ml 22:58 Drug: Ibuprofen 800 mg Route: PO; ea 23:50 Follow up: Response: No adverse reaction jd3 Intake: 23:10 IV: 500ml; Total: 500ml. jd3 Outcome: 23:59 Discharge ordered by . cp 03/02 00:25 Discharged to home ambulatory, with family. jd3 Condition: stable Discharge instructions given to patient, family, Instructed on discharge instructions, follow up and referral plans. medication usage, Demonstrated understanding of instructions, follow-up care, medications, Prescriptions given X 1. 00:26 Patient left the ED. jd3 Addendum: 03/03/2020 19:30 Addendum: Other Patient notified by Dr. Lindsey of COVID positive results. l p1 Signatures: Damian Miracle ds1 Elly Murcia RN RN lp1 Marek Jiménez PA PA cp Antunez, Elena RN RN Choco Pinon RN RN jd3 Sydni Leon RN RN ca1 Corrections: (The following items were deleted from the chart) 03/01 20:38 20:33 Chief complaint: Patient states: Today, I started having fever and chills and ca1 just not feeling well. 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 Denies SOB ca1
[2020-03-02 00:48] VITALS: BP 132/66; TEMP 99.8; O2SAT 96
== END 2020-03-02 00:26 | disposition home or self-care (01) ==
LOC: ER 20:22
DX: U07.1 COVID-19 (principal); I10 Essential (primary) hypertension; E11.9 Type 2 diabetes mellitus without complications
CPT/HCPCS: 87040 ×2; 87070; 85025; 80048; 36415; 80076; 87081; 83605; 81015; 84145; 87804 ×2; 96360; 99284; U0001; J7040

== ENCOUNTER 2020-03-09 20:40 | Emergency (ER) | payer OTHER ==
--- OUTSIDE RECORDS SUMMARY | 2020-03-09 20:43 | XMS REPORT | Clinical Summary ---
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
--- OUTSIDE RECORDS SUMMARY | 2020-03-09 20:45 | XMS REPORT | Continuity of Care Document ---
:1960 Author Organization [employer] [facility] Care Team Providers Name Role Phone [facility] Unavailable Un available Problems Problem Status Onset Classification Date Comments Sourc e Date Reported ELBOW F/B - PIECE OF Active [facility] WIRE [address] [place] [address] CELLULITIS, FB UPPER Active [facility] ARM [address] [place] [address] Diabetes mellitus Resolved Problem 02/25/2017 [facility] (disorder) [facility] Hypercholesterolemia Resolved Problem 02/25/2017 [facility] (disorder) [facility] Hypertensive disorder, Resolved Problem 02/25/2017 [facility] systemic arterial Me dical (disorder) Center Obstructive sleep apnea Resolved Problem 02/25/2017 [facility] syndrome (disorder) [facility] Hiatal hernia Resolved Problem 02/25/[place] ([place]) [facility] CELLULITIS, UNSPECIFIED Active [facility] Medications Medication Details Route Status Patient Ordering Order Source Instructions Provider Date Amoxicillin 875 MG / 1 tab, PO, Active [facility] Clavulanate 125 MG Q12H, X 5 day, 2017 Medical Oral Tablet # 10 tab, 0 Center [Augmentin 875-mg] Refill(s) Acetaminophen 300 MG 1 tab, PO, Active 02/22[facility] / Codeine Phosphate Q6H, PRN Pain, 2017 Medical 30 MG Oral Tablet X 7 day, # 28 Center [Tylenol with tab, 0 Codeine #3] Refill(s) tramadol 50 mg = 1 tab, Active 02/22[facility] hydrochloride 50 MG PO, Q4H, X 7 2017 Medical Oral Tablet day, # 42 tab, Cente r 0 Refill(s) rosuvastatin Notes: Same as No Longer 02/22/ [facility] Crestor Active [address] [place] [address] Pramipexole Notes: (Same No Longer 02/21/ [place] as: Mirapex) Active [address] [place] [address] Insulin Glargine Notes: Same No Longer 02/21/ [facility] as: Lantus) Do Active 2017 Medical not hold Center insulin without contacting prescriber WASTE: F/P - Black; E - Municipal Trash [facility] Acetaminophen 325 MG Notes: (Same No Longer 02/03 0 [place] / Hydrocodone as: [place] Active 2017 Medical Bitartrate 5 MG Oral 325/5) Do not Center Tablet [[place] 5/325] exceed 4gm/day of acetaminophen. Losartan Notes: [...] as Inactive [facility] [place] N[place]an 2017 [facility] Flumazenil Notes: (Same Inactive 02/20[facility] [place] as: Romazicon) 2017 [facility] Oxycodone Notes: (Same Inactive 02/20[facility] [place] as: 2017 Medical 'Roxicodone) Center Hydromorphone Notes: Same Inactive 02/20[facility] [place] as: Dilaudid 2017 [facility] esmolol Notes: (Same Inactive 02/20[facility] [place] as: Brevibloc) 2017 [facility] Labetalol 10 mg, 2 mL, Inactive [facility] Route: IVP, 2017 Medical Drug form: Center INJ, Q5Min, Dosing Weight 127.273, kg, PRN Elevated BP, Start date: 02/20/17 16:24:00 CDT, Duration: 5 doses or times, Stop date: 02/21/17 0:00:00 CDT Hydralazine Notes: (Same Inactive 02/20[facility] [place] as: 2017 Medical Apresoline) Center Push over 5 minutes Metoprolol Notes: (Same Inactive 02/20[facility] [place] as: Lopressor) 2017 Medical Push over 2 Center minutes glycopyrrolate Route: IV, Inactive 02/20[facility] [place] (ANES) Drug form: 2017 Medical INJ, ONCE, Center Stop date: 02/20/17 16:23:00 CDT neostigmine (ANES) Route: IV, Inactive 02/20[facility] Drug form: 2016 Medical INJ, ONCE, Center Stop date: 02/20/17 16:23:00 CDT ondansetron (ANES) Route: IV, Inactive 02/20[facility] Drug form: 2017 Medical INJ, ONCE, Center Stop date: 02/20/17 16:23:00 CDT fentaNYL (ANES) Route: IV, Inactive 02/20[facility] [place] Drug form: 2017 Medical INJ, ONCE, Center Stop date: 02/20/17 16:00:00 CDT ePHEDrine (ANES) Route: IV, Inactive 02/20[facility] Drug form: 2017 Medical INJ, ONCE, Center Stop date: 02/20/17 16:00:00 CDT succinylcholine Route: IV, Inactive 02/20[facility] [place] (ANES) Drug form: 2017 Medical INJ, ONCE, Center Stop date: 02/20/17 16:00:00 CDT lidocaine (ANES) Route: IV, Inactive [facility] Drug form: 2017 Medical INJ, ONCE, Center Stop date: 02/20/17 16:00:00 CDT midazolam (ANES) Route: IV, Inactive [facility] Drug form: 2017 Medical SOLN, ONCE, Center Stop date: 02/20/17 16:00:00 CDT rocuronium (ANES) Route: IV, Inactive [facility] Drug form: 2017 Medical INJ, ONCE, Center Stop date: 02/20/17 16:00:00 CDT propofol (ANES) Route: IV, Inactive [place] Drug form: 2017 Medical INJ, ONCE, Center Stop date: 02/20/17 16:00:00 CDT ceFAZolin (ANES) Route: IV, Inactive [facility] Drug form: 2017 Medical INJ, ONCE, Center Stop date: 02/20/17 15:45:00 CDT LR 1000 mL INJ Route: IV, Inactive [place] (ANES) Total Volume: 2017 Medical 1,000, Start Center date: 02/20/17 14:50:00 CDT, Stop date: 02/20/17 15:50:00 CDT 3 ML insulin 28 unit, Active [facility] degludec 200 UNT/ML SUB-Q, Daily, 2017 Medical Pen Injector TITRATE UP TO Cente r [Tresiba] 50 PER DAY, 0 Refill(s) pramipexole 0.5 mg 0.5 mg = 1 Active [facility] oral tablet tab, PO, BID, 2017 Medica l AT 5 AND 8 Center PM, 0 Refill(s) rosuvastatin 5 mg 5 mg = 1 tab, Active [facility] oral tablet PO, Bedtime, # 2017 Medic [...] Bin Hydrochlorothiazide Notes: (Same No Longer 02/20 [facility] as: Active 2017 Medical Hydrodiuril) Center With food. Lisinopril Notes: (Same No Longer [facility] as as: Prinivil, Active 2017 Medical Zestril) Center Docusate Notes: (Same No Longer [facility] as: Colace) Active 2017 Medical (Do Not Crush) Center Tresiba FlexTouch See Inactive [place] Instructions, 2017 Medical SUB-Q Daily, 0 Center Refill(s) Metformin 1,000 mg, PO, Active [facility] BID, 0 2017 Medical Refill(s) Center 3 ML liraglutide 6 1.2 mg, SUB-Q, Active [facility] MG/ML Prefilled Daily, # 6 mL, 2017 [...] 300 MG 300 mg = 1 Active [facility] Oral Capsule cap, PO, 2017 Medical Bedtime, 0 Center Refill(s) pantoprazole 40 MG 40 mg = 1 tab, Active [facility] Enteric Coated PO, Daily, # 2017 Medi erm[place] Tablet [Protonix] 30 tab, 0 Cent er Refill(s) Klor-Con 8 8 mEq, PO, Inactive [facility] BID, 0 2017 Medical Refill(s) Center Hydrochlorothiazide 25 mg, PO, Active [place] Daily, 0 2017 Medical Refill(s) Center losartan 50 mg oral 50 mg = 1 tab, Active 02/20 [facility] tablet PO, Daily, 0 2017 Medical Refill(s) Center pravastatin 10 mg 10 mg = 1 tab, Inactive [facility] oral tablet PO, Bedtime, # 2017 Medic al 30 tab, 0 Center Refill(s) Klor-Con 8 8 mEq, PO, Inactive [place] BID, 0 2016 Medical Refill(s) Center Albuterol 0.833 Notes: (Same No Longer [facility] [place] MG/ML / Ipratropium as: Duoneb) Active 2016 Medical Elsie 0.167 MG/ML Cent er Inhalant Solution [DuoNeb] [...] of Pallavi ter Tablet acetaminophen. (Same as: [place] 325/10) Acetaminophen Notes: Do not No Longer [place] exceed 4 Active 2017 Medical gm/day. (Same Center as: Tylenol) Dilaudid 1 mg, Route: Inactive [facility] IVP, ONCE, 2016 Medical Dosing Weight Center 125, kg, Priority: STAT, Start date: 02/19/17 20:59:00 CDT, Stop date: 02/19/17 20:59:00 CDT Zosyn 4.5 gm, Route: Inactive [facility] IVPB, ONCE, 2016 Medical Dosing Weight Center 125, kg, Priority: STAT, Start date: 02/19/17 20:59:00 CDT, Duration: 1 doses or times, Stop date: 02/19/17 20:59:00 CDT, ABX Indication: Bacteremia Vancomycin 2001 mg: Inactive [facility] infuse over 2017 [facility] 2.5 hours Center MEDICATION WASTE Product Size: [...] PANEL Magnesium 2.1 1.8 - 2.4 02/21 [facility] CHEM PANEL Phosphorus 2.6 2.5 - 4.5 02/21 [facility] ELECTROLYTES AGAP 12.1 10.0 - 02/21 [facility] 20.0 [facility] ELECTROLYTES Sodium l 135 135 - 145 02/21 [place] [facility] ELECTROLYTES Creatinine 0.81 0.50 - 02/21 [facility] ELECTROLYTES Chloride Lvl 101 95 - 109 02/21 [place] [facility] ELECTROLYTES Potassium 4.1 3.5 - 5.1 02/21 [place] [facility] ELECTROLYTES CO2 26 24 - 32 02/21 [facility] ELECTROLYTES BUN 11 7 - 22 02/21 [facility] ELECTROLYTES Glucose Lvl 165 70 - 99 02/21 [facility] ELECTROLYTES eGFR 99 02/21 Result Comment: The [...] 8.9 8.5 - 10.5 02/21 [place] [facility] HEMATOLOGY MCV 83.0 80.0 - 02/21 [place] 94.0 [facility] HEMATOLOGY Hgb 11.3 14.0 - 02/21 18.0 [facility] HEMATOLOGY Hct 34.1 42.0 - 02/21 54.0 [facility] HEMATOLOGY WBC 9.8 3.7 - 10.4 02/21 [facility] HEMATOLOGY RBC 4.11 4.70 - 02/21 [place] 6.10 [facility] HEMATOLOGY MPV 7.9 7.4 - 10.4 02/21 [facility] HEMATOLOGY RDW 14.5 11.5 - 02/21 [place] 14.5 [facility] HEMATOLOGY Platelet 218 133 - 450 02/21 [facility] HEMATOLOGY MCH 27.4 27.0 - 02/21 [place] 31.0 [facility] HEMATOLOGY MCHC 33.0 32.0 - 02/21 [place] 36.0 [facility] HEMATOLOGY Monocytes # 0.4 0.0 - 0.8 02/21 [facility] HEMATOLOGY Lymphocytes 0.7 1.0 - 5.5 02/21 [place] # /2016 [facility] HEMATOLOGY Lymphocytes 7.5 20.0 - 02/21 [place] 40.0 [facility] HEMATOLOGY Monocytes 3.7 2.0 - 12.0 02/21 [facility] HEMATOLOGY Segs 88.7 45.0 - 02/21 [place] 75.0 [facility] HEMATOLOGY Basophils 0.1 0.0 - 1.0 02/21 [facility] HEMATOLOGY Segs-Bands # 8.7 1.5 - 8.1 02/21 [place] /2016 [facility] BLOOD BANK ABO/Rh A NEG 02/20 [place] RESULTS [facility] BLOOD BANK Antibody Negative 02/20 [facility] RESULTS Scrn (02/20/17 3:31 AM) [facility] CHEM PANEL eGFR 97 02/20 Result Comment: [facility] eGFR is Center calculated using the CKD-EPI [...] 0.84 0.50 - 02/20 [place] Lvl 1.40 [facility] CHEM PANEL Glucose Lvl 149 70 - 99 02/20 [facility] CHEM PANEL Potassium 3.7 3.5 - 5.1 02/20 [facility] Lvl [facility] CHEM PANEL Chloride Lvl 106 95 - 109 02/20 a s /2016 [facility] CHEM PANEL BUN 12 7 - 22 02/20 [facility] CHEM PANEL AGAP 14.7 10.0 - 02/20 [place] 20.0 [facility] CHEM PANEL Calcium Lvl 8.0 8.5 - 10.5 02/20 as [facility] CHEM PANEL CO2 24 24 - 32 02/20 [facility] CHEM PANEL Sodium Lvl 141 135 - 145 02/20 [facility] HEMATOLOGY PT 12.7 12.0 - 02/20 [place] 14.7 [facility] HEMATOLOGY PTT 29.1 22.9 - 02/20 [place] 35.8 /2016 [facility] HEMATOLOGY INR 0.93 0.85 - 02/20 [place] 1.17 [facility] HEMATOLOGY Platelet 200 133 - 450 02/20 [facility] HEMATOLOGY RDW 14.5 11.5 - 02/20 [place] 14.5 [facility] HEMATOLOGY MCHC 33.8 32.0 - 02/20 [place] 36.0 [facility] HEMATOLOGY Hct 31.8 42.0 - 02/20 [place] 54.0 [facility] HEMATOLOGY MCV 83.7 80.0 - 02/20 [place] 94.0 [facility] HEMATOLOGY Hgb 10.7 14.0 - 02/20 [place] 18.0 [facility] HEMATOLOGY MPV 8.6 7.4 - 10.4 02/20 [facility] HEMATOLOGY MCH 28.3 27.0 - 02/20 [place] 31.0 [facility] HEMATOLOGY WBC 7.8 3.7 - 10.4 02/20 [facility] HEMATOLOGY RBC 3.80 4.70 - 02/20 [place] 6.10 [facility] HEMATOLOGY Basophils 0.4 0.0 - 1.0 02/20 [facility] HEMATOLOGY Eosinophils 0.2 0.0 - 0.5 02/[place] # /2016 [facility] HEMATOLOGY Monocytes 7.7 2.0 - 12.0 02/20 [facility] HEMATOLOGY Lymphocytes 21.1 20.0 - 02/20 [place] 40.0 [facility] HEMATOLOGY Segs-Bands # 5.3 1.5 - 8.1 02/20 [place] /2016 [facility] HEMATOLOGY Eosinophils 3.0 0.0 - 4.0 02/[place] /2016 [facility] HEMATOLOGY Segs 67.8 45.0 - 02/20 [place] 75.0 [facility] HEMATOLOGY Monocytes # 0.6 0.0 - 0.8 02/20 s [facility] HEMATOLOGY Lymphocytes 1.6 1.0 - 5.5 02/20 [place] # [facility] CHEM PANEL Lactic Acid 1.0 0.5 - 2.2 02/20 [facility] s l [facility] ELECTROLYTES AGAP 13.8 10.0 - 02/20 [place] 20.0 [facility] ELECTROLYTES eGFR 101 02/20 Result Comment: The [...] 8.2 8.5 - 10.5 02/20 [place] [facility] ELECTROLYTES CO2 25 24 - 32 02/20 [facility] ELECTROLYTES Glucose Lvl 106 70 - 99 02[facility] ELECTROL[facility]TES Sodium Lvl 140 135 - 145 02/20 as [facility] ELECTROLYTES Chloride Lvl 105 95 - 109 02/20 [place] [facility] ELECTROLYTES Potassium 3.8 3.5 - 5.1 02/20 [facility] s l [facility] ELECTROLYTES Creatinine 0.77 0.50 - 02/20 [facility] Lvl 1.40 [facility] ELECTROLYTES BUN 12 7 - 22 02/20 [facility] HEMATOLOGY Eosinophils 0.2 0.0 - 0.5 02/[place] [facility] HEMATOLOGY Monocytes # 0.7 0.0 - 0.8 02/20 [place] [facility] HEMATOLOGY Lymphocytes 1.9 1.0 - 5.5 02/[place] # /2016 [facility] HEMATOLOGY Segs-Bands # 5.0 1.5 - 8.1 02/20 as [facility] HEMATOLOGY Basophils 0.5 0.0 - 1.0 02/20 [facility] HEMATOLOGY Monocytes 8.9 2.0 - 12.0 02/20 [facility] HEMATOLOGY Lymphocytes 24.5 20.0 - 02/20 [place] 40.0 [facility] HEMATOLOGY Segs 63.3 45.0 - 02/20 [place] 75.0 [facility] HEMATOLOGY Eosinophils 2.8 0.0 - 4.0 02/20 s /2016 [facility] HEMATOLOGY Sed Rate 45 0 - 15 02/20 [facility] HEMATOLOGY WBC 7.9 3.7 - 10.4 02/20 [facility] HEMATOLOGY Hgb 10.9 14.0 - 02/20 18.0 [facility] HEMATOLOGY RBC 3.90 4.70 - 02/20 [place] 6.10 [facility] HEMATOLOGY MCH 28.0 27.0 - 02/20 [place] 31.0 [facility] HEMATOLOGY MCV 82.3 80.0 - 02/20 94.0 [facility] HEMATOLOGY Hct 32.1 42.0 - 02/20 54.0 [facility] HEMATOLOGY MCHC 34.0 32.0 - 02/20 [place] 36.0 [facility] HEMATOLOGY Platelet 206 133 - 450 02/20 [facility] HEMATOLOGY RDW 14.5 11.5 - 02/20 14.5 [facility] HEMATOLOGY MPV 7.8 7.4 - 10.4 02/20 [facility] IMMUNOLOGY C-REACTIVE 19.3 <=2.9 mg/L 02/20 [facility] Pathology Reports No Data Provided for This Section Diagnostic Reports Report Value Date Source Upper Ext-Outside EXAM: CT RIGHT ELBOW WITHOUT CONTRAST 02/20/20 [facility] Medical Consult CT DATE: 02/19/2017 9:56 PM [...] EXAM: XR RIGHT HUMERUS 2 VIEWS 02/19/2017 [facility] Medical EXAM: XR RIGHT ELBOW 3 VIEWS [...] EXAM: XR RIGHT HUMERUS 2 VIEWS 02/19/2017 [facility] Medical EXAM: XR RIGHT ELBOW 3 VIEWS [...] EXAM: XR RIGHT HUMERUS 2 VIEWS 02/19/2017 [facility] EXAM: XR RIGHT ELBOW 3 VIEWS [place] [...] Source Temperature Oral (F) 98 F 02/22/2017 [facility] Systolic (mm Hg) 158 02/22/2017 [facility] [place] [facility] Diastolic (mm Hg) 81 02/22/2017 [facility] Center Respitory Rate 18 02/22/2017 [facility] Heart Rate 67 02/22/2017 [facility] Systolic (mm Hg) 143 02/22/2017 [facility] [place] [facility] d[facility] Center Diastolic (mm Hg) 85 02/22/2017 [facility] Temperature Oral (F) 97.9 F 02/22/2017 [facility] Heart Rate 65 02/22/2017 [facility] Respitory Rate 18 02/22/2017 [facility] Systolic (mm Hg) 128 02/22/2017 [facility] [place] [facility] dical Center Diastolic (mm Hg) 78 02/22/2017 [facility] Center Respitory Rate 18 02/22/2017 [facility] Heart Rate 73 02/22/2017 [facility] [place] Temperature Oral (F) 97.8 F 02/22/2017 [facility] Height 182.88 cm 02/20/2017 [facility] [place] Weight 127.273 02/20/2017 [facility] [place] BMI Calculated 38.05 02/20/2017 [facility] Height 182.88 cm 02/20/2017 [facility] [place] BMI Calculated 37.37 02/20/2017 [facility] Weight 125 02/20/2017 [facility] [place] Encounters Location Location Encounter Encounter Reason Attending ADM MA Stat us Source Details Type Number For Provider Date Date Visit [facility] Inpatient [id number] Hilda Dang 02/20 02/22 [facility] /2016 [facility] Procedures Procedure Code Date Perfomer Comments Source Hand [id number] surgery [facility] incision<sup>1</ procedure on Medica l sup> left hand 2005 Center Operation on [id number] year 2013 [facility] lumbar Medical spine<sup>2</sup Center > Repair of knee [id number] year 2014 [facility] joint<sup>3</sup Medical > Center Assessment and Plan Assessment and Plan Date Source Extracted from:Title: Progress Note 02/22/2017 [facility] Author: Hilda Dang MD Date: 02/21/17 Assessment/Plan [...] dications of losartan 50 mg p.o. daily, [id number] mg p.o. daily -It has improved at [...] any questions - Ramo Preciado MD PGY2 [id number] I, Sahil Brennan, have examined the patient and agree with the above assessment and plan on 02/20/2017. Plan: to the OR for I&D/FB removal R elbow, NPO, consent. Plan of Care No Data Provided for This Section Social History Social History Date Source Social History TypeResponse 02/20/2017 [facility] Substance Abuse Use: None. Alcohol Never [...]
[2020-03-09] MEDS ORDERED: METOCLOPRAMIDE 10 MG/2mL INJ ONE (22:10)
[2020-03-09] MEDS ORDERED: DIPHENHYDRAMINE 50 MG/ML VIAL ONE (22:11)
[2020-03-09] MEDS ORDERED: NA CHLORIDE 0.9% 1,000 ML ONE (22:11)
[2020-03-09] MEDS ORDERED: dexAMETHasone 10 MG/ML VIAL ONE (22:11)
[2020-03-09] MEDS ORDERED: NA CHLORIDE 0.9% 100 ML IV ONE (22:11)
[2020-03-09 22:12] LABS: Absolute Lymphocytes (CBC) 0.9 K/uL (0.7-4.9); Basophils % 0.3 % (0-1.3); Hematocrit 32.2 % (39.6-49.0); Lymphocytes % 17.2 % (15.3-44.8); MPV 7.8 fL (7.6-11.3); RBC Red Blood Cell Count 3.88 M/uL (4.33-5.43)
[2020-03-09 22:14] LABS: Protime INR 1.17
[2020-03-09 22:25] LABS: BUN Blood Urea Nitrogen 14 mg/dL (7-18); Bicarbonate 27 mmol/L (21-32); Glucose Level 126 mg/dL (74-106); Potassium 3.4 mmol/L (3.5-5.1); Sodium Level 138 mmol/L (136-145)
--- NOTE | 2020-03-10 00:13 | ER ---
Nurse's Notes [facility] Name: Charlie Murray Age: 59 yrs Sex: Male : 1960 Arrival Date: 03/09/2020 Time: 20:44 Bed 30 Private MD: Diagnosis: SARS-associated coronavirus as the cause of diseases classified elsewhere;Shortness of breath Presentation: 03/09 21:09 Chief complaint: Patient states: MONDAY I CAME IN HERE AND TESTED FOR COVID. SYMPTOMS rv STARTED MONDAY MORNING. THEN I GOT A CALL MONDAY AND TEST IS POSITIVE. AND NOW I AM HAVING THE WORSE HEADACHE, 10/10 PAIN SCALE. COUGH AND LOW GRADE FEVER. MY DOCTOR IS WORRIED ABOUT MY OXYGEN SATS. Coronavirus screen: Surgical mask placed on patient. Patient moved to private room, placed in contact and droplet isolation with eye protection until further assessment. Patient reports a cough. Patient reports shortness of breath or difficulty breathing. Patient reports a measured and/or subjective temperature greater than 100.4F. Patient denies travel on a cruise ship or to a country the [facility] currently lists as an affected area. Coronavirus screen: Prior COVID test collected on: 03/02/2020 02/04/2020 POSITIVE RESULT. Ebola Screen: No symptoms or risks identified at this time. Initial Sepsis Screen: Does the patient meet any 2 criteria? No. Patient's initial sepsis screen is negative. Does the patient have a suspected source of infection? No. Patient's initial sepsis screen is negative. Risk Assessment: Do you want to hurt yourself or someone else? Patient reports no desire to harm self or others. Onset of symptoms is unknown. 21:09 Method Of Arrival: Ambulatory rv 21:09 Acuity: CORINE 3 rv Triage Assessment: 21:13 General: Appears uncomfortable, Behavior is calm, cooperative. Pain: Complains of pain rv in HEAD Pain currently is 10 out of 10 on a pain scale. Quality of pain is described as throbbing. Cardiovascular: Patient's skin is warm and dry. Rhythm is sinus rhythm. Respiratory: Reports shortness of breath at rest Airway is patent Respiratory effort is even, unlabored, Breath sounds are coarse in left posterior lower lobe and right posterior lower lobe Onset: The symptoms/episode began/occurred yesterday, the patient has mild shortness of breath. Historical: - Allergies: 21:13 No Known Allergies; rv - PMHx: 21:13 Anemia; Diabetes - NIDDM; Hypertension; neuropathy; restless leg syndrome; rv - PSHx: 21:13 Gastric Bypass; Hernia repair; rv - Immunization history:: Adult Immunizations up to date. - Social history:: Smoking status: Patient denies any tobacco usage or history of. Screenin:46 Abuse screen: Denies threats or abuse. Denies injuries from another. Nutritional ls4 screening: No deficits noted. Tuberculosis screening: No symptoms or risk factors identified. Fall Risk None identified. Assessment: 20:58 General: Appears in no apparent distress. uncomfortable, Behavior is calm, cooperative. ls4 Pain: Complains of pain in right posterior lower lobe and left posterior lower lobe Pain currently is 10 out of 10 on a pain scale. Cardiovascular: Denies chest pain, Capillary refill < 3 seconds Clubbing of nail beds is absent Patient's skin is warm and dry. Rhythm is sinus rhythm. Respiratory: Reports cough that is non-productive, dry, hacking, persistent Airway is patent Respiratory effort is even, unlabored, Respiratory pattern is regular, Denies shortness of breath labored breathing, air hunger. 20:58 GI: No deficits noted. No signs and/or symptoms were reported involving the ls4 gastrointestinal system. : No deficits noted. No signs and/or symptoms were reported regarding the genitourinary system. Derm: Skin is pink, warm \T\ dry. Musculoskeletal: No deficits noted. No signs and/or symptoms reported regarding the musculoskeletal system. 22:00 Reassessment: Patient appears in no apparent distress at this time. Patient and/or ls4 family updated on plan of care and expected duration. Pain level reassessed. Patient is alert, oriented x 3, equal unlabored respirations, skin warm/dry/pink. 23:01 Reassessment: Patient appears in no apparent distress at this time. Patient and/or ls4 family updated on plan of care and expected duration. Pain level reassessed. Patient is alert, oriented x 3, equal unlabored respirations, skin warm/dry/pink. Patient states symptoms have improved. 23:51 Reassessment: Patient appears in no apparent distress at this time. Patient and/or ls4 family updated on plan of care and expected duration. Pain level reassessed. Patient is alert, oriented x 3, equal unlabored respirations, skin warm/dry/pink. Patient states feeling better. 03/10 00:41 Reassessment: Patient appears in no apparent distress at this time. Patient and/or ls4 family updated on plan of care and expected duration. Pain level reassessed. Patient is alert, oriented x 3, equal unlabored respirations, skin warm/dry/pink. Patient states feeling better. Patient states symptoms have improved. Vital Signs: 03/09 21:09 BP 154 / 87; Pulse 72; Resp 12; Temp 99.8; Pulse Ox 93% on R/A; Weight 106.59 kg; rv Height 5 ft. 11 in. (180.34 cm); Pain 10/10; 21:46 BP 148 / 88; Pulse 69; Resp 14; Pulse Ox 98% on R/A; ls4 22:56 BP 148 / 86; Pulse 74; Resp 18; Pulse Ox 98% on R/A; ls4 03/10 00:01 BP 138 / 88; Pulse 69; Resp 16; Temp 98.9(O); Pulse Ox 98% on R/A; Pain 0/10; ls4 03/09 21:09 Body Mass Index 32.78 (106.59 kg, 180.34 cm) rv ED Course: 03/09 20:44 Patient arrived in ED. bp1 21:01 Petey Carlin PA is PHCP. jr8 21:01 Vlad Zhang MD is Attending Physician. jr8 21:09 Rishi Ventura, PORFIRIO is Primary Nurse. rv 21:12 Triage completed. rv 21:14 Arm band placed on Patient placed in the treatment room, on a stretcher, on cardiac rv monitor, on pulse oximetry, Patient notified of wait time. 21:32 Brittany Bowles, RN is Primary Nurse. ls4 21:32 XRAY Chest (1 view) Sent. ls4 21:37 XRAY Chest (1 view) In Process Unspecified. EDMS 21:46 Patient has correct armband on for positive identification. Bed in low position. Call ls4 light in reach. Side rails up X 1. ship wirer on. Pulse ox on. NIBP on. Warm blanket given. Verbal reassurance given. 21:47 No provider procedures requiring assistance completed. ls4 21:50 EKG done, by ED staff, reviewed by Vlad Zhang MD. Inserted saline lock: 20 gauge in right ds4 forearm, using aseptic technique. Blood collected. 22:18 Notified Nurse Practitioner and/or Physician Heel Layer of a critical lab result(s), jane DDIMER [id number]. 23:45 CT Chest For PE Angio In Process Unspecified. EDMS 03/10 00:40 IV discontinued, intact, bleeding controlled, No redness/swelling at site. Pressure ls4 dressing applied. Administered Medications: 03/09 21:59 Drug: Reglan 10 mg Route: IVP; Site: right forearm; ls4 22:20 Follow up: Response: No adverse reaction; Marked relief of symptoms ls4 21:59 Drug: Benadryl 25 mg Route: IVP; Site: right forearm; ls4 22:20 Follow up: Response: No adverse reaction; Marked relief of symptoms ls4 21:59 Drug: NS 0.9% 1000 ml Route: IV; Rate: 1000 ml; Site: right forearm; ls4 22:00 Follow up: IV Status: Completed infusion; IV Intake: 1000ml ls4 21:59 Drug: Decadron - Dexamethasone 10 mg Route: IVP; Site: right forearm; ls4 22:30 Follow up: Response: No adverse reaction; Marked relief of symptoms ls4 Intake: 22:00 IV: 1000ml; Total: 1000ml. ls4 Outcome: 03/10 00:12 Discharge ordered by . liane 00:40 Discharged to home ambulatory. ls4 00:40 Condition: good 00:40 Discharge instructions given to patient, Instructed on discharge instructions, follow up and referral plans. medication usage, safety practices, Demonstrated understanding of instructions, follow-up care, medications, Prescriptions given X 1. 00:41 Patient left the ED. ls4 Signatures: Dispatcher [employer] EDMS Raymundo Villalobos RN RN Petey Solis PA PA jr8 Daniel Das ds4 Rishi Ventura RN RN Brittany Barrios RN RN ls4 Elvira Miramontes Corrections: (The following items were deleted from the chart) 03/09 22:20 22:19 Decadron - Dexamethasone 10 mg IVP in right forearm ls4 ls4 22:59 21:58 General: Appears in no apparent distress. uncomfortable, Behavior is calm, ls4 cooperative, ls4 22:59 21:58 Pain: Complains of pain in right posterior lower lobe and left posterior lower ls4 lobe Pain currently is 10 out of 10 on a pain scale. ls4 23:00 21:58 Cardiovascular: Denies chest pain, Capillary refill < 3 seconds Clubbing of nail ls4 beds is absent Patient's skin is warm and dry. Rhythm is sinus rhythm ls4 23:00 21:58 Respiratory: Reports cough that is non-productive, dry, hacking, persistent ls4 Airway is patent Respiratory effort is even, unlabored, Respiratory pattern is regular, Denies shortness of breath labored breathing, air hunger, ls4 23: 21:58 Pain: Complains of pain in right posterior lower lobe and left posterior lower ls4 lobe Pain currently is 10 out of 10 on a pain scale. ls4 23: 21:58 General: Appears in no apparent distress. uncomfortable, Behavior is calm, ls4 cooperative, 4 23: 21:58 GI: No deficits noted. No signs and/or symptoms were reported involving the ls4 gastrointestinal system. ls4 23: 21:58 : No deficits noted. No signs and/or symptoms were reported regarding the ls4 genitourinary system. ls4 23: 21:58 Derm: Skin is pink, warm \T\ dry. ls4 ls4 23: 21:58 Musculoskeletal: No deficits noted. No signs and/or symptoms reported regarding ls4 the musculoskeletal system. ls4
--- NOTE | 2020-03-10 00:13 | EDPHYS ---
Physician Documentation [facility] Name: Charlie Murray Age: 59 yrs Sex: Male : 1960 Arrival Date: 03/09/2020 Time: 20:44 Bed 30 Private MD: ED Physician Vlad Zhang HPI: 03/09 23:28 This 59 yrs old Male presents to ER via Ambulatory with complaints of COVID jr8 positive, Breathing Difficulty. 23:28 The patient has shortness of breath at rest. Onset: The symptoms/episode began/occurred jr8 gradually, 2 day(s) ago. Duration: The symptoms are continuous. The patient's shortness of breath has no apparent modifying factors. Associated signs and symptoms: Pertinent positives: non-productive cough, fever, headache . Severity of symptoms: At their worst the symptoms were moderate in the emergency department the symptoms are unchanged. The patient has not experienced similar symptoms in the past. The patient has not recently seen a physician. Patient stated that he tested positive for COVID. Stated that his PCP sent him to be evaluated because his oxygen saturation at home had been in the 80s from his monitor. Stated that he has had mild shortness of breath with cough and headache along with body aches and fever . Historical: - Allergies: 21:13 No Known Allergies; rv - PMHx: 21:13 Anemia; Diabetes - NIDDM; Hypertension; neuropathy; restless leg syndrome; rv - PSHx: 21:13 Gastric Bypass; Hernia repair; rv - Immunization history:: Adult Immunizations up to date. - Social history:: Smoking status: Patient denies any tobacco usage or history of. ROS: 23:28 Eyes: Negative for injury, pain, redness, and discharge, ENT: Negative for injury, jr8 pain, and discharge, Neck: Negative for injury, pain, and swelling, Cardiovascular: Negative for chest pain, palpitations, and edema, Abdomen/GI: Negative for abdominal pain, nausea, vomiting, diarrhea, and constipation, Back: Negative for injury and pain, MS/Extremity: Negative for injury and deformity, Skin: Negative for injury, rash, and discoloration. 23:28 Constitutional: Positive for body aches, chills, fever. 23:28 Respiratory: Positive for cough, shortness of breath. 23:28 Neuro: Positive for headache. Exam: 23:28 Eyes: Pupils equal round and reactive to light, extra-ocular motions intact. Lids and jr8 lashes normal. Conjunctiva and sclera are non-icteric and not injected. Cornea within normal limits. Periorbital areas with no swelling, redness, or edema. ENT: Nares patent. No nasal discharge, no septal abnormalities noted. Tympanic membranes are normal and external auditory canals are clear. Oropharynx with no redness, swelling, or masses, exudates, or evidence of obstruction, uvula midline. Mucous membranes moist. Neck: Trachea midline, no thyromegaly or masses palpated, and no cervical lymphadenopathy. Supple, full range of motion without nuchal rigidity, or vertebral point tenderness. No Meningismus. Cardiovascular: Regular rate and rhythm with a normal S1 and S2. No gallops, murmurs, or rubs. Normal PMI, no JVD. No pulse deficits. Respiratory: Lungs have equal breath sounds bilaterally, clear to auscultation and percussion. No rales, rhonchi or wheezes noted. No increased work of breathing, no retractions or nasal flaring. Abdomen/GI: Soft, non-tender, with normal bowel sounds. No distension or tympany. No guarding or rebound. No evidence of tenderness throughout. Back: No spinal tenderness. No costovertebral tenderness. Full range of motion. Skin: Warm, dry with normal turgor. Normal color with no rashes, no lesions, and no evidence of cellulitis. MS/ Extremity: Pulses equal, no cyanosis. Neurovascular intact. Full, normal range of motion. Neuro: Awake and alert, GCS 15, oriented to person, place, time, and situation. Cranial nerves II-XII grossly intact. Motor strength 5/5 in all extremities. Sensory grossly intact. Cerebellar exam normal. Normal gait. Vital Signs: 21:09 BP 154 / 87; Pulse 72; Resp 12; Temp 99.8; Pulse Ox 93% on R/A; Weight 106.59 kg; rv Height 5 ft. 11 in. (180.34 cm); Pain 10/10; 21:46 BP 148 / 88; Pulse 69; Resp 14; Pulse Ox 98% on R/A; ls4 22:56 BP 148 / 86; Pulse 74; Resp 18; Pulse Ox 98% on R/A; ls4 07 00:01 BP 138 / 88; Pulse 69; Resp 16; Temp 98.9(O); Pulse Ox 98% on R/A; Pain 0/10; ls4 03/09 21:09 Body Mass Index 32.78 (106.59 kg, 180.34 cm) rv MDM: 03/09 21:01 Patient medically screened. [facility] 03/10 00:11 Data reviewed: vital signs, nurses notes, lab test result(s), EKG, radiologic studies, [facility] CT scan, plain films. Data interpreted: Pulse oximetry: on room air is 98 %. Interpretation: normal. Counseling: I had a detailed discussion with the patient and/or guardian regarding: the historical points, exam findings, and any diagnostic results supporting the discharge/admit diagnosis, lab results, radiology results, the need for outpatient follow up, a family practitioner, to return to the emergency department if symptoms worsen or persist or if there are any questions or concerns that arise at home. ED course: Patient feeling much better. Oxygen saturation without O2 is 98%. Labs stable. Will d/c home to f/u with PCP. Knows to come back if worse . 03/09 21:14 Order name: Basic Metabolic Panel; Complete Time: 22:25 [facility] 03/09 21:14 Order name: CBC with Diff; Complete Time: 22:25 03/09 21:14 Order name: XRAY Chest (1 view) 03/09 21:14 Order name: PT-INR; Complete Time: 22:25 [facility] 03/09 21:14 Order name: DD; Complete Time: 22:25 03/09 22:55 Order name: CT Chest For PE Angio 03/09 21:14 Order name: EKG; Complete Time: 21:14 03/09 21:14 Order name: Cardiac monitoring; Complete Time: 21:37 03/09 21:14 Order name: EKG - Nurse/Tech; Complete Time: 21:37 03/09 21:14 Order name: IV Saline Lock; Complete Time: 21:37 03/09 21:14 Order name: Labs collected and sent; Complete Time: 21:37 [facility] 03/09 21:14 Order name: O2 Per Protocol; Complete Time: 21:38 03/09 21:14 Order name: O2 Sat Monitoring; Complete Time: 21:38 jr8 Administered Medications: 03/09 21:59 Drug: Reglan 10 mg Route: IVP; Site: right forearm; ls4 22:20 Follow up: Response: No adverse reaction; Marked relief of symptoms ls4 21:59 Drug: Benadryl 25 mg Route: IVP; Site: right forearm; ls4 22:20 Follow up: Response: No adverse reaction; Marked relief of symptoms ls4 21:59 Drug: NS 0.9% 1000 ml Route: IV; Rate: 1000 ml; Site: right forearm; ls4 22:00 Follow up: IV Status: Completed infusion; IV Intake: 1000ml ls4 21:59 Drug: Decadron - Dexamethasone 10 mg Route: IVP; Site: right forearm; ls4 22:30 Follow up: Response: No adverse reaction; Marked relief of symptoms ls4 Disposition: 03/10 01:06 Co-signature as Attending Physician, Vlad Zhang MD. pk Disposition: 03/10/20 00:12 Discharged to Home. Impression: SARS-associated coronavirus as the cause of diseases classified elsewhere, Shortness of breath. - Condition is Stable. - Discharge Instructions: Shortness of Breath, COVID-19. - Prescriptions for prednisone 10 mg Oral tablet - take 1 tablet by ORAL route 2 times per day for 14 days; 28 tablet. - Medication Reconciliation Form, Thank You Letter, Antibiotic Education, Prescription Opioid Use form. - Follow up: Private Physician; When: 1 week; Reason: Recheck today's complaints, Continuance of care, Re-evaluation by your physician. - Problem is new. - Symptoms have improved. Signatures: Dispatcher [employer] EDVlad Couch MD MD pk Petey Carlin PA PA jr8 Rishi Ventura RN RN Brittany Barrios RN RN ls4 Corrections: (The following items were deleted from the chart) 00:41 00:12 03/10/2020 00:12 Discharged to Home. Impression: SARS-associated coronavirus as ls4 the cause of diseases classified elsewhere; Shortness of breath. Condition is Stable. Forms are Medication Reconciliation Form, Thank You Letter, Antibiotic Education, Prescription Opioid Use. Follow up: Private Physician; When: 1 week; Reason: Recheck today's complaints, Continuance of care, Re-evaluation by your physician. Problem is new. Symptoms have improved. jr8
[2020-03-10 01:03] VITALS: O2SAT 98
[2020-03-10 01:06] VITALS: BP 138/88; TEMP 98.9
--- NOTE | 2020-03-10 10:55 | EKG ---
Test Date: 2020-03-09 Test Time: 21:47:21 Unit Manager: HARMONY MEASUREMENT RESULTS: Intervals: Rate: 70 LA: 146 QRSD: 92 QT: 408 QTc: 440 [place]: P: 35 LA: 146 QRS: 18 T: -22 INTERPRETIVE STATEMENTS: Normal sinus rhythm Moderate voltage criteria for LVH, may be normal variant T wave abnormality, consider inferior ischemia Abnormal ECG Compared to ECG 11/08/2000 10:18:00 Left ventricular hypertrophy now present T-wave abnormality still present Possible ischemia still present Electronically Signed On 03-10-20 10:53:54 CDT by Dayton Lucas
--- NOTE | 2020-03-10 12:29 | RAD REPORT ---
EXAM DESCRIPTION: CT - Chest For Pe Angio - 03/10/2020 3:48 am CLINICAL HISTORY: DYSPNEA COMPARISON: None Available. TECHNIQUE: CTA of the chest obtained following the uncomplicated intravenous administration of iodin ated contrast. 3-D/MIP reformatted images of the chest available for evaluation. FINDINGS: Chest: Pulmonary arteries: Contrast bolus is adequate.No filling defects identified in the pulmonary arterie s to suggest pulmonary embolus. Thyroid: No abnormalities of the visualized thyroid. Great Vessels: Great vessels have normal anatomic configuration. Thoracic Aorta: Atherosclerotic calcification of the thoracic aorta. Heart: Cardiac megaly. No significant pericardial effusion. Lymph Nodes: No enlarged mediastinal lymph nodes identified. Esophagus: Small hiatal hernia. Postoperative change of the stomach. Other: No additional findings. Lungs: Diffuse patchy confluent predominantly peripheral and basilar groundglass opacities throughout the lungs bilaterally. Pleura: No pleural effusion or pneumothorax. Trachea/Airways: No abnormalities of the visualized trachea or airways. Bones: Endplate spondylosis and facet arthropathy throughout the visualized spine. Upper Abdomen: Limited images of the upper abdomen demonstrate no definite abnormalities of visualize d portions of the liver, pancreas, spleen, adrenal glands, or kidneys. IMPRESSION: 1. No pulmonary embolus. 2. Bilateral basilar predominant nodular and confluent groundglass opacities. Commonly reported imagi ng features of viral pneumonia are present. Other processes such as influenza pneumonia and organizin g pneumonia, as can be seen with drug toxicity and connective tissue disease, can cause similar imagi ng pattern. PneTyp 3. Cardiomegaly. This exam was performed according to our departmental dose-optimization program, which includes autom ated exposure control, adjustment of the mA and/or kV according to patient size and/or use of iterati ve reconstruction technique. Electronically signed by: Shiraz Reyes 03/09/2020 11:56 PM CDT Due to temporary technical issues with the PACS/Fluency reporting system, reports are being signed by the in house radiologist without review as a courtesy to ensure prompt reporting. The interpreting r adiologist is fully responsible for the content of the report.
--- NOTE | 2020-03-10 12:34 | RAD REPORT ---
EXAM DESCRIPTION: RAD - Chest Single View - 03/09/2020 9:36 pm CLINICAL HISTORY: DYSPNEA COMPARISON: None. FINDINGS: Single frontal view of the chest. Cardiomediastinal silhouette: Cardiomegaly. Lungs: Multiple patchy bilateral airspace opacities in the lungs bilaterally. No pneumothorax or pleu ral effusion. Bones: No acute osseous abnormality. Upper abdomen: No abnormality identified. IMPRESSION: 1. Multiple bilateral patchy airspace opacities. Findings could be seen with viral pneum onia. 2. Cardiomegaly. Electronically signed by: Shiraz Reyes 03/09/2020 11:52 PM CDT Due to temporary technical issues with the PACS/Fluency reporting system, reports are being signed by the in house radiologist without review as a courtesy to ensure prompt reporting. The interpreting r adiologist is fully responsible for the content of the report.
== END 2020-03-10 00:41 | disposition home or self-care (01) ==
LOC: ER 20:40
DX: R06.02 Shortness of breath (principal); B97.21 SARS-associated coronavirus as the cause of diseases classified elsewhere; R05 Cough; I10 Essential (primary) hypertension; Z98.84 Bariatric surgery status
CPT/HCPCS: 93005; 85025; 80048; 36415; 85610; 85379; 71275; 71045; 96375; 96374; 99285; Q9967; J2765; J1200; J1100; J7030